=== PATIENT | male | born 1995 | race African-American/Black ===

== ENCOUNTER 2017-09-15 07:08 | Emergency (ER) | payer MEDICAID ==
[~2017-09-15] VITALS: Ht 182.9 cm; Wt 65.5 kg
[~2017-09-15 07:08] MED LIST: COROTSUS OT; CYCL-1 PO; NO HOME MEDS; ONDA4TAB12 PO
[2017-09-15] MEDS ORDERED: ipratropium/albuterol 3ml nebule NEB ONE (07:40)
[2017-09-15] MEDS ORDERED: dexamethasone 4mg tablet PO ONE (07:40)
[2017-09-15] MEDS ORDERED: AZIT250T PO (07:55)
[2017-09-15] MEDS ORDERED: ALBU8HFA PO (07:55)
[2017-09-15] MEDS ORDERED: PRED20TA PO (07:55)
[2017-09-15 08:23] VITALS: BP 126/68
== END 2017-09-15 08:55 | disposition home or self-care (01) ==
LOC: ER 07:08
DX: J20.9 Acute bronchitis, unspecified (principal); J06.9 Acute upper respiratory infection, unspecified; J32.0 Chronic maxillary sinusitis; F17.200 Nicotine dependence, unspecified, uncomplicated; F12.10 Cannabis abuse, uncomplicated
CPT/HCPCS: 87070; 94640; 99284; J8540

== ENCOUNTER 2019-03-17 17:19 | Emergency (ER) | payer MEDICAID ==
[~2019-03-17] VITALS: Ht 177.8 cm; Wt 70.0 kg
[~2019-03-17 17:19] MED LIST changes: +AZIT250T PO
[2019-03-17 17:53] LABS: CLARITY,URINE SLIGHTLY CLOUDY (Clear); COLOR,URINE YELLOW (Yellow); GLUCOSE, URINE NEGATIVE (Neg); KETONES,URINE TRACE mg/dl (Neg); LEUKOCYTE ESTERASE ,URINE NEGATIVE (Neg); NITRITES, URINE NEGATIVE (Neg); OCCULT BLOOD,URINE NEGATIVE (Neg); PH,URINE 6.5 (4.8-8.0); PROTEIN,URINE 30 mg/dl (Neg)
[2019-03-17 18:00] LABS: UA COLLECTION TYPE CLN CATCH MIDSTREAM
[2019-03-17 18:07] LABS: MUCUS STRANDS MANY /LPF (Neg); SQUAMOUS EPITHELIAL CELL,UR NONE SEEN /LPF (FEW)
[2019-03-17 18:08] LABS: BACTERIA,URINE NONE SEEN /HPF (Neg); RBC,URINE NONE SEEN /HPF (0-2); WBC,URINE 0-4 /HPF (0-4)
[2019-03-17 18:10] LABS: AMORPHOUS PHOSPHATES 2+
[2019-03-17] MEDS ORDERED: CefTRIAXone 250MG IM Kit w/LIDOcaine IM ONE (18:30)
[2019-03-17] MEDS ORDERED: azithromycin 250mg tablet PO ONE (18:30)
[2019-03-17 19:00] VITALS: BP 133/72
[2019-03-17] MEDS ORDERED: ACYC-202 PO (19:32)
[2019-03-17 19:58] LABS: HIV ANTIBODY 1&2 RAPID NON-REACTIVE (Neg)
[2019-03-19 11:41] LABS: RPR Reactive (Non Reactive)
[2019-03-22 05:14] LABS: HSV 1 PCR Negative (Negative); HSV 2 PCR Negative (Negative)
== END 2019-03-17 19:49 | disposition home or self-care (01) ==
LOC: ER 17:20
DX: B00.9 Herpesviral infection, unspecified (principal); F12.90 Cannabis use, unspecified, uncomplicated; Z79.2 Long term (current) use of antibiotics; Z79.899 Other long term (current) drug therapy; Z98.890 Other specified postprocedural states
CPT/HCPCS: 36415; 81001; 86592; 86703; 87491; 87529; 87591; 96372; 99283; J0696

== ENCOUNTER 2019-04-20 09:28 | Emergency (ER) | payer MEDICAID ==
[~2019-04-20] VITALS: Ht 177.8 cm; Wt 65.9 kg
[2019-04-20 09:35] VITALS: BP 130/76
[2019-04-20] MEDS ORDERED: penicillin G benzathine 1.2 million unit/2ml syringe IM ONE (11:30)
[2019-04-20] MEDS ORDERED: ACYC400T PO (11:41)
== END 2019-04-20 12:10 | disposition home or self-care (01) ==
LOC: ER 09:29
DX: A60.01 Herpesviral infection of penis (principal); A51.0 Primary genital syphilis; F12.90 Cannabis use, unspecified, uncomplicated; Z90.89 Acquired absence of other organs; Z98.890 Other specified postprocedural states; Z79.899 Other long term (current) drug therapy
CPT/HCPCS: 96372; 99283; J0561

== ENCOUNTER 2019-05-31 19:18 | Emergency (ER) | payer OTHER, MEDICAID ==
[~2019-05-31] VITALS: Ht 177.8 cm; Wt 61.0 kg
[2019-05-31 19:27] VITALS: BP 125/68
[2019-05-31] MEDS ORDERED: ketorolac tromethamine 15mg/ml inj. IM ONE (20:25)
== END 2019-05-31 21:07 | disposition home or self-care (01) ==
LOC: ER 19:19
DX: M54.5 Low back pain (principal); R51 Headache; Z90.89 Acquired absence of other organs; Z98.890 Other specified postprocedural states; F12.90 Cannabis use, unspecified, uncomplicated; Z79.899 Other long term (current) drug therapy; V87.7XXA Person injured in collision between other specified motor vehicles (traffic), initial encounter; Y92.89 Other specified places as the place of occurrence of the external cause; Y92.488 Other paved roadways as the place of occurrence of the external cause; Y99.8 Other external cause status
CPT/HCPCS: 96372; 99283; J1885

== ENCOUNTER 2019-09-14 09:43 | Emergency (ER) | payer MEDICAID, OTHER ==
[~2019-09-14] VITALS: Ht 177.8 cm; Wt 63.9 kg
--- NOTE | 2019-09-14 10:38 | NUR ---
Ultrasound in progress.
[2019-09-14 10:39] LABS: CLARITY,URINE CLEAR (Clear); COLOR,URINE YELLOW (Yellow); GLUCOSE, URINE NEGATIVE (Neg); KETONES,URINE NEGATIVE (Neg); LEUKOCYTE ESTERASE ,URINE NEGATIVE (Neg); NITRITES, URINE NEGATIVE (Neg); OCCULT BLOOD,URINE TRACE-INTACT (Neg); PH,URINE 6.5 (4.8-8.0); PROTEIN,URINE NEGATIVE (Neg); UROBILINOGEN,URINE 0.2 E.U/dL (0.2-1.0)
[2019-09-14 10:44] LABS: UA COLLECTION TYPE CLN CATCH MIDSTREAM
[2019-09-14 10:46] LABS: BACTERIA,URINE NONE SEEN /HPF (Neg); MUCUS STRANDS NONE SEEN /LPF (Neg); RBC,URINE 0-2 /HPF (0-2); SQUAMOUS EPITHELIAL CELL,UR FEW /LPF (FEW); WBC,URINE 0-4 /HPF (0-4)
[2019-09-14 11:16] VITALS: BP 118/75
[2019-09-14] MEDS ORDERED: ondansetron 4mg rapidly disintigrating tab PO ONE (11:25)
[2019-09-14] MEDS ORDERED: HYDROcodone/acetaminophen 5mg/325mg tablet PO ONE (11:25)
[2019-09-14] MEDS ORDERED: tamsulosin 0.4mg capsule PO SCH (11:25)
[2019-09-14] MEDS ORDERED: NAPR-56 PO (11:43)
== END 2019-09-14 12:26 | disposition home or self-care (01) ==
LOC: ER 09:44
DX: N20.0 Calculus of kidney (principal); N23 Unspecified renal colic; F12.90 Cannabis use, unspecified, uncomplicated; Z98.890 Other specified postprocedural states; Z79.2 Long term (current) use of antibiotics; Z79.899 Other long term (current) drug therapy
CPT/HCPCS: 74176; 76775; 81001; 99284

== ENCOUNTER 2019-10-07 18:05 | Emergency (ER) | payer MEDICAID ==
[~2019-10-07] VITALS: Ht 182.9 cm; Wt 65.9 kg
[~2019-10-07 18:05] MED LIST changes: +NAPR-56 PO
[2019-10-07 18:19] VITALS: BP 121/75
== END 2019-10-07 19:18 | disposition home or self-care (01) ==
LOC: ER 18:07
DX: S01.442A Puncture wound with foreign body of left cheek and temporomandibular area, initial encounter (principal); F12.90 Cannabis use, unspecified, uncomplicated; W23.0XXA Caught, crushed, jammed, or pinched between moving objects, initial encounter; Y93.89 Activity, other specified; Y92.89 Other specified places as the place of occurrence of the external cause; Y99.9 Unspecified external cause status
CPT/HCPCS: 99284

== ENCOUNTER 2019-12-02 16:37 | Emergency (ER) | payer MEDICAID ==
[~2019-12-02] VITALS: Ht 182.9 cm; Wt 80.0 kg
[~2019-12-02 16:37] MED LIST changes: -NAPR-56 PO
[2019-12-02] MEDS ORDERED: normal saline 1000ML IV soln IVB ONE (17:25)
[2019-12-02 17:58] LABS: BASOPHILS % (AUTO) 0.6 % (0-1); EOSINOPHILS # (AUTO) 0.1 X10'3 (0-0.9); EOSINOPHILS % (AUTO) 1.3 % (0-6); HEMATOCRIT 46.5 % (42.0-52.0); HEMOGLOBIN 15.3 g/dl (14.0-17.9); LYMPHOCYTES # (AUTO) 1.7 X10'3 (1.1-4.8); LYMPHOCYTES % (AUTO) 33.4 % (21-51); MEAN CORPUSCULAR HEMOGLOBIN 30.2 PG (27.0-31.0); MEAN CORPUSCULAR HGB CONC 32.9 g/dL (33.0-36.5); MEAN CORPUSCULAR VOLUME 91.8 FL (78-98); MEAN PLATELET VOLUME 8.8 FL (7.4-10.4); MONOCYTES # (AUTO) 0.5 X10'3 (0-0.9); MONOCYTES % (AUTO) 11.1 % (2-12); NEUTROPHILS # (AUTO) 2.7 X10'3 (1.8-7.7); NEUTROPHILS % (AUTO) 53.6 % (42-75); PLATELET COUNT 186 X10'3 (140-440); RED BLOOD COUNT 5.06 X10'6 (4.70-6.10); RED CELL DISTRIBUTION WIDTH 13.2 % (11.5-14.5)
[2019-12-02 18:12] LABS: ALANINE AMINOTRANSFERASE 42 U/L (12-78); ALBUMIN 4.3 G/DL (3.4-5.0); ALBUMIN/GLOBULIN RATIO 1.2 (1.1-1.5); ALKALINE PHOSPHATASE 61 IU/L (46-116); ANION GAP 5 (8-16); ASPARTATE AMINO TRANSFERASE 26 U/L (10-37); BILIRUBIN,TOTAL 0.4 MG/DL (0.1-1.0); BLOOD UREA NITROGEN 19 MG/DL (7-18); BUN/CREATININE RATIO 17.9 (5.4-32.0); CALCIUM 9.4 MG/DL (8.5-10.1); CHLORIDE 104 MMOL/L (99-107); CREATININE 1.06 MG/DL (0.60-1.10); GLUCOSE 75 MG/DL (70-104); POTASSIUM 4.2 MMOL/L (3.5-5.1); SODIUM 140 MMOL/L (135-145); TOTAL CARBON DIOXIDE 30.7 MMOL/L (24-32); TOTAL PROTEIN 7.8 G/DL (6.4-8.2); eGFR > 90 ML/MIN
[2019-12-02 18:45] LABS: CLARITY,URINE SLIGHTLY CLOUDY (Clear); COLOR,URINE YELLOW (Yellow); GLUCOSE, URINE NEGATIVE (Neg); KETONES,URINE NEGATIVE (Neg); LEUKOCYTE ESTERASE ,URINE NEGATIVE (Neg); NITRITES, URINE NEGATIVE (Neg); OCCULT BLOOD,URINE NEGATIVE (Neg); PROTEIN,URINE NEGATIVE (Neg)
[2019-12-02 18:52] VITALS: BP 125/60
[2019-12-02 18:54] LABS: UA COLLECTION TYPE URINAL
[2019-12-02 18:55] LABS: AMORPHOUS PHOSPHATES 2+; BACTERIA,URINE FEW /HPF (Neg); RBC,URINE NONE SEEN /HPF (0-2); SQUAMOUS EPITHELIAL CELL,UR FEW /LPF (FEW); WBC,URINE 0-4 /HPF (0-4)
--- NOTE | 2019-12-02 19:10 | NUR ---
pt mothers called and insisted on a ct before discharged, all labs are unremarkable and pt needs to follow up with [facility]. Provider made aware of request. pt is in no distress and pain is 0/10
== END 2019-12-02 19:24 | disposition home or self-care (01) ==
LOC: ER 17:45
DX: E86.0 Dehydration (principal); F12.90 Cannabis use, unspecified, uncomplicated; R53.1 Weakness; Z79.2 Long term (current) use of antibiotics; Z79.899 Other long term (current) drug therapy
CPT/HCPCS: 36415; 80053; 81001; 85025; 93005; 99284; J7030

== ENCOUNTER 2020-01-15 10:50 | Emergency (ER) | payer MEDICAID ==
[~2020-01-15] VITALS: Ht 182.9 cm; Wt 63.3 kg
[2020-01-15] MEDS ORDERED: ketorolac tromethamine 15mg/ml inj. IM ONE (11:15)
[2020-01-15] MEDS ORDERED: orphenadrine citrate 60mg/2ml inj. IM ONE (11:15)
[2020-01-15 11:52] VITALS: BP 119/81
== END 2020-01-15 11:53 | disposition home or self-care (01) ==
LOC: ER 10:51
DX: S60.211A Contusion of right wrist, initial encounter (principal); M54.5 Low back pain; F12.90 Cannabis use, unspecified, uncomplicated; Z90.89 Acquired absence of other organs; Z79.899 Other long term (current) drug therapy; Z98.890 Other specified postprocedural states; V89.2XXA Person injured in unspecified motor-vehicle accident, traffic, initial encounter; Y93.89 Activity, other specified; Y92.488 Other paved roadways as the place of occurrence of the external cause; Y99.8 Other external cause status
CPT/HCPCS: 29280; 73110; 96372; 99283; J1885

== ENCOUNTER 2020-02-20 17:10 | Emergency (ER) | payer MEDICAID ==
[~2020-02-20] VITALS: Ht 182.9 cm; Wt 61.0 kg
[2020-02-20 18:58] VITALS: BP 136/74
[2020-02-20] MEDS ORDERED: HYDROcodone/acetaminophen 10/325mg tab PO ONE (19:10)
== END 2020-02-20 21:10 | disposition home or self-care (01) ==
LOC: ER 17:11
DX: R51 Headache (principal); H53.8 Other visual disturbances; R11.0 Nausea; F17.200 Nicotine dependence, unspecified, uncomplicated; Z87.442 Personal history of urinary calculi; Z90.89 Acquired absence of other organs; Z98.890 Other specified postprocedural states; Z72.89 Other problems related to lifestyle; Z79.899 Other long term (current) drug therapy
CPT/HCPCS: 70450; 99284

== ENCOUNTER 2020-04-02 14:30 | Emergency (ER) | payer MEDICAID ==
[~2020-04-02] VITALS: Ht 182.9 cm; Wt 63.7 kg
[2020-04-02 16:48] LABS: CLARITY,URINE CLOUDY (Clear); COLOR,URINE STRAW (Yellow); GLUCOSE, URINE NEGATIVE (Neg); KETONES,URINE NEGATIVE (Neg); LEUKOCYTE ESTERASE ,URINE NEGATIVE (Neg); NITRITES, URINE NEGATIVE (Neg); OCCULT BLOOD,URINE NEGATIVE (Neg); PROTEIN,URINE NEGATIVE (Neg)
[2020-04-02 16:49] LABS: UA COLLECTION TYPE CLN CATCH MIDSTREAM
[2020-04-02 17:04] LABS: SQUAMOUS EPITHELIAL CELL,UR NONE SEEN /LPF (FEW)
[2020-04-02 17:05] LABS: MUCUS STRANDS MANY /LPF (Neg)
[2020-04-02 17:06] LABS: AMORPHOUS PHOSPHATES 4+; BACTERIA,URINE NONE SEEN /HPF (Neg); RBC,URINE 0-2 /HPF (0-2); WBC,URINE 0-4 /HPF (0-4)
[2020-04-02 17:41] VITALS: BP 115/81
[2020-04-02] MEDS ORDERED: tamsulosin 0.4mg capsule PO SCH (17:50)
[2020-04-02] MEDS ORDERED: HYDROcodone/acetaminophen 5mg/325mg tablet PO ONE (17:50)
[2020-04-02] MEDS ORDERED: naproxen 500mg tablet PO ONE (17:50)
[2020-04-02] MEDS ORDERED: HYDR-4383 PO (17:52)
[2020-04-02] MEDS ORDERED: NAPR-56 PO (17:52)
[2020-04-02] MEDS ORDERED: FLO0.4C PO (17:52)
== END 2020-04-02 18:55 | disposition home or self-care (01) ==
LOC: ER 14:36
DX: N23 Unspecified renal colic (principal); Z90.89 Acquired absence of other organs; Z72.89 Other problems related to lifestyle; Z98.890 Other specified postprocedural states; Z79.899 Other long term (current) drug therapy
CPT/HCPCS: 81001; 99284

== ENCOUNTER 2020-08-19 09:43 | Emergency (ER) | payer MEDICAID ==
[~2020-08-19] VITALS: Ht 182.9 cm; Wt 62.8 kg
[~2020-08-19 09:43] MED LIST changes: +HYDR-4383 PO
[2020-08-19 11:05] LABS: BASOPHILS % (AUTO) 0.9 % (0-1); EOSINOPHILS # (AUTO) 0.1 X10'3 (0-0.9); EOSINOPHILS % (AUTO) 1.6 % (0-6); HEMATOCRIT 48.3 % (42.0-52.0); HEMOGLOBIN 15.9 g/dl (14.0-17.9); LYMPHOCYTES # (AUTO) 1.6 X10'3 (1.1-4.8); LYMPHOCYTES % (AUTO) 31.2 % (21-51); MEAN CORPUSCULAR HGB CONC 32.9 g/dL (33.0-36.5); MEAN CORPUSCULAR VOLUME 91.3 FL (78-98); MONOCYTES # (AUTO) 0.6 X10'3 (0-0.9); MONOCYTES % (AUTO) 11.1 % (2-12); NEUTROPHILS # (AUTO) 2.8 X10'3 (1.8-7.7); NEUTROPHILS % (AUTO) 55.2 % (42-75); PLATELET COUNT 195 X10'3 (140-440); RED BLOOD COUNT 5.29 X10'6 (4.70-6.10); RED CELL DISTRIBUTION WIDTH 13.9 % (11.5-14.5); WHITE BLOOD COUNT 5.1 X10'3 (4.5-11.0)
[2020-08-19 11:19] LABS: ALANINE AMINOTRANSFERASE 31 U/L (12-78); ALBUMIN 4.6 G/DL (3.4-5.0); ALBUMIN/GLOBULIN RATIO 1.2 (1.1-1.5); ALKALINE PHOSPHATASE 80 IU/L (46-116); ANION GAP 5 (8-16); ASPARTATE AMINO TRANSFERASE 29 U/L (10-37); BILIRUBIN,TOTAL 0.8 MG/DL (0.1-1.0); BLOOD UREA NITROGEN 21 MG/DL (7-18); BUN/CREATININE RATIO 20.6 (5.4-32.0); CALCIUM 9.7 MG/DL (8.5-10.1); CHLORIDE 102 MMOL/L (99-107); CREATININE 1.02 MG/DL (0.60-1.10); GLUCOSE 81 MG/DL (70-104); LIPASE 70 U/L (73-393); POTASSIUM 4.4 MMOL/L (3.5-5.1); SODIUM 139 MMOL/L (135-145); TOTAL CARBON DIOXIDE 32.2 MMOL/L (24-32); TOTAL PROTEIN 8.4 G/DL (6.4-8.2); eGFR > 90 ML/MIN
[2020-08-19 11:47] LABS: CLARITY,URINE CLEAR (Clear); COLOR,URINE YELLOW (Yellow); GLUCOSE, URINE NEGATIVE (Neg); KETONES,URINE NEGATIVE (Neg); LEUKOCYTE ESTERASE ,URINE NEGATIVE (Neg); NITRITES, URINE NEGATIVE (Neg); OCCULT BLOOD,URINE TRACE-INTACT (Neg); PH,URINE 6.5 (4.8-8.0); PROTEIN,URINE NEGATIVE (Neg); UA COLLECTION TYPE CLN CATCH MIDSTREAM
[2020-08-19 11:54] LABS: BACTERIA,URINE NONE SEEN /HPF (Neg); MUCUS STRANDS FEW /LPF (Neg); RBC,URINE 0-2 /HPF (0-2); SQUAMOUS EPITHELIAL CELL,UR NONE SEEN /LPF (FEW); WBC,URINE 0-4 /HPF (0-4)
[2020-08-19] MEDS ORDERED: normal saline 1000ML IV soln IVB ONE (12:40)
[2020-08-19 12:54] LABS: C-REACTIVE PROTEIN < 0.05 MG/DL (0.0-0.5)
[2020-08-19 12:57] VITALS: BP 108/77
[2020-08-19] MEDS ORDERED: ONDA4TAB6 PO (13:08)
== END 2020-08-19 13:22 | disposition home or self-care (01) ==
LOC: ER 09:45
DX: R10.9 Unspecified abdominal pain (principal); R10.31 Right lower quadrant pain; Z87.442 Personal history of urinary calculi; Z90.89 Acquired absence of other organs; Z72.89 Other problems related to lifestyle; Z79.2 Long term (current) use of antibiotics; Z79.899 Other long term (current) drug therapy; Z98.890 Other specified postprocedural states
CPT/HCPCS: 36415; 76775; 80053; 81001; 83690; 85025; 86140; 96360; 99284; J7030

== ENCOUNTER 2020-11-05 11:12 | Emergency (ER) | payer OTHER, MEDICAID ==
[~2020-11-05] VITALS: Ht 182.9 cm; Wt 62.3 kg
[~2020-11-05 11:12] MED LIST changes: +ONDA4TAB6 PO
--- NOTE | 2020-11-05 13:29 | NUR ---
c-collar on and pt layed flat in bed
[2020-11-05] MEDS ORDERED: orphenadrine citrate 60mg/2ml inj. IM ONE (13:35)
[2020-11-05] MEDS ORDERED: ketorolac tromethamine 15mg/ml inj. IM ONE (13:35)
[2020-11-05] MEDS ORDERED: CYCL-1 PO (14:58)
[2020-11-05] MEDS ORDERED: IBUP-1984 PO (14:58)
[2020-11-05 15:02] VITALS: BP 136/77
== END 2020-11-05 15:05 | disposition home or self-care (01) ==
LOC: ER 11:14
DX: M54.2 Cervicalgia (principal); M54.5 Low back pain; Z87.442 Personal history of urinary calculi; Z90.89 Acquired absence of other organs; Z98.890 Other specified postprocedural states; Z72.89 Other problems related to lifestyle; Z79.899 Other long term (current) drug therapy; V87.7XXA Person injured in collision between other specified motor vehicles (traffic), initial encounter; Y93.89 Activity, other specified; Y92.488 Other paved roadways as the place of occurrence of the external cause; Y99.8 Other external cause status
CPT/HCPCS: 72125; 72128; 72131; 96372; 99285; J1885; J2360

== ENCOUNTER 2021-05-25 22:02 | Emergency (ER) | payer MEDICAID ==
[~2021-05-25] VITALS: Ht 182.9 cm; Wt 65.0 kg
[2021-05-26 00:46] VITALS: BP 115/75
== END 2021-05-26 00:48 | disposition home or self-care (01) ==
LOC: ER 22:02
DX: I80.8 Phlebitis and thrombophlebitis of other sites (principal); M25.532 Pain in left wrist; F17.200 Nicotine dependence, unspecified, uncomplicated; Z87.442 Personal history of urinary calculi; Z90.89 Acquired absence of other organs; Z98.890 Other specified postprocedural states; Z72.89 Other problems related to lifestyle; Z79.2 Long term (current) use of antibiotics; Z79.899 Other long term (current) drug therapy
CPT/HCPCS: 93971; 99284

== ENCOUNTER 2021-06-08 02:56 | Emergency (ER) | payer MEDICAID ==
[~2021-06-08] VITALS: Ht 182.9 cm; Wt 65.9 kg
[2021-06-08 03:48] LABS: BASOPHILS % (AUTO) 0.5 % (0-1); EOSINOPHILS % (AUTO) 0.5 % (0-6); HEMOGLOBIN 14.4 g/dl (14.0-17.9); LYMPHOCYTES # (AUTO) 2.2 X10'3 (1.1-4.8); MEAN CORPUSCULAR HEMOGLOBIN 30.4 PG (27.0-31.0); MEAN CORPUSCULAR HGB CONC 33.4 g/dL (33.0-36.5); MEAN CORPUSCULAR VOLUME 90.8 FL (78-98); MEAN PLATELET VOLUME 8.6 FL (7.4-10.4); MONOCYTES # (AUTO) 0.5 X10'3 (0-0.9); MONOCYTES % (AUTO) 5.8 % (2-12); NEUTROPHILS # (AUTO) 6.4 X10'3 (1.8-7.7); NEUTROPHILS % (AUTO) 69.2 % (42-75); PLATELET COUNT 207 X10'3 (140-440); RED BLOOD COUNT 4.74 X10'6 (4.70-6.10); RED CELL DISTRIBUTION WIDTH 13.2 % (11.5-14.5); WHITE BLOOD COUNT 9.2 X10'3 (4.5-11.0)
[2021-06-08 04:20] LABS: ALANINE AMINOTRANSFERASE 30 U/L (12-78); ALBUMIN 4.4 G/DL (3.4-5.0); ALBUMIN/GLOBULIN RATIO 1.2 (1.1-1.5); ALKALINE PHOSPHATASE 60 IU/L (46-116); ANION GAP 13 (8-16); ASPARTATE AMINO TRANSFERASE 37 U/L (10-37); BILIRUBIN,TOTAL 0.5 MG/DL (0.1-1.0); BLOOD UREA NITROGEN 22 MG/DL (7-18); BUN/CREATININE RATIO 20.8 (5.4-32.0); CALCIUM 9.1 MG/DL (8.5-10.1); CHLORIDE 105 MMOL/L (99-107); CREATININE 1.06 MG/DL (0.60-1.10); GLUCOSE 66 MG/DL (70-104); POTASSIUM 3.6 MMOL/L (3.5-5.1); SODIUM 145 MMOL/L (135-145); TOTAL CARBON DIOXIDE 26.7 MMOL/L (24-32); eGFR 85 ML/MIN
[2021-06-08 05:05] VITALS: BP 119/71
== END 2021-06-08 05:08 | disposition home or self-care (01) ==
LOC: ER 02:57
DX: R07.89 Other chest pain (principal); R06.02 Shortness of breath; E16.2 Hypoglycemia, unspecified; Z87.442 Personal history of urinary calculi; Z90.89 Acquired absence of other organs; Z98.890 Other specified postprocedural states; Z72.89 Other problems related to lifestyle; Z79.2 Long term (current) use of antibiotics; Z79.899 Other long term (current) drug therapy
CPT/HCPCS: 36415; 71045; 80053; 83880; 84484; 85025; 93005; 99285

== ENCOUNTER 2021-07-11 22:00 | Emergency (ER) | payer MEDICAID ==
[~2021-07-11] VITALS: Ht 182.9 cm; Wt 63.6 kg
[2021-07-11 22:09] VITALS: BP 107/66
== END 2021-07-12 03:07 | disposition left against medical advice (07) ==
LOC: ER 22:00
DX: M54.2 Cervicalgia (principal); Z53.21 Procedure and treatment not carried out due to patient leaving prior to being seen by health care provider

== ENCOUNTER 2022-03-13 22:22 | Emergency (ER) | payer MEDICAID ==
[~2022-03-13] VITALS: Ht 182.9 cm; Wt 66.2 kg
[2022-03-13 22:30] VITALS: BP 118/80
[2022-03-13 23:51] LABS: CLARITY,URINE CLEAR (Clear); COLOR,URINE YELLOW (Yellow); GLUCOSE, URINE NEGATIVE (Neg); KETONES,URINE NEGATIVE (Neg); LEUKOCYTE ESTERASE ,URINE NEGATIVE (Neg); NITRITES, URINE NEGATIVE (Neg); OCCULT BLOOD,URINE MODERATE (Neg); PROTEIN,URINE NEGATIVE (Neg)
[2022-03-13 23:58] LABS: UA COLLECTION TYPE CLN CATCH MIDSTREAM
[2022-03-14] LABS: BACTERIA,URINE FEW /HPF (Neg); MUCUS STRANDS MANY /LPF (Neg); RBC,URINE 20-50 /HPF (0-2); SQUAMOUS EPITHELIAL CELL,UR FEW /LPF (FEW); WBC,URINE 0-4 /HPF (0-4)
== END 2022-03-14 02:38 | disposition left against medical advice (07) ==
LOC: ER 22:23
DX: R10.9 Unspecified abdominal pain (principal); Z53.21 Procedure and treatment not carried out due to patient leaving prior to being seen by health care provider
CPT/HCPCS: 81001

== ENCOUNTER 2022-09-10 13:28 | Emergency (ER) | payer MEDICAID ==
[~2022-09-10] VITALS: Ht 182.9 cm; Wt 60.0 kg
[2022-09-10 13:51] VITALS: BP 94/47
--- NOTE | 2022-09-10 15:32 | NUR ---
first contact. pt is ao4 resp even unlabored. bilat hands show no swelling or redness rull range of motion. pt states some part are tender particularly left metacarpal
--- NOTE | 2022-09-10 17:02 | NUR ---
pt left prior to md aleman.
== END 2022-09-10 16:40 | disposition left against medical advice (07) ==
LOC: ER 13:28
DX: S60.222A Contusion of left hand, initial encounter (principal); S60.221A Contusion of right hand, initial encounter; Z87.442 Personal history of urinary calculi; Z72.89 Other problems related to lifestyle; Z90.89 Acquired absence of other organs; Z98.890 Other specified postprocedural states; Z79.2 Long term (current) use of antibiotics; Z79.899 Other long term (current) drug therapy; X58.XXXA Exposure to other specified factors, initial encounter; Y93.89 Activity, other specified; Y92.89 Other specified places as the place of occurrence of the external cause; Y99.8 Other external cause status
CPT/HCPCS: 73130; 99283

== ENCOUNTER 2023-08-15 19:57 | Emergency (ER) | payer MEDICAID ==
[~2023-08-15] VITALS: Ht 182.9 cm; Wt 74.5 kg
[2023-08-15 20:08] VITALS: TEMP 98.3
[2023-08-15 20:18] LABS: BASOPHILS % (AUTO) 0.3 % (0-1); EOSINOPHILS % (AUTO) 0.2 % (0-6); HEMATOCRIT 42.7 % (42.0-52.0); LYMPHOCYTES # (AUTO) 1.4 X10'3 (1.1-4.8); LYMPHOCYTES % (AUTO) 9.4 % (21-51); MEAN CORPUSCULAR HEMOGLOBIN 29.9 PG (27.0-31.0); MEAN CORPUSCULAR HGB CONC 32.7 g/dL (33.0-36.5); MEAN CORPUSCULAR VOLUME 91.3 FL (78-98); MEAN PLATELET VOLUME 7.8 FL (7.4-10.4); MONOCYTES # (AUTO) 0.6 X10'3 (0-0.9); MONOCYTES % (AUTO) 4.3 % (2-12); NEUTROPHILS # (AUTO) 12.5 X10'3 (1.8-7.7); NEUTROPHILS % (AUTO) 85.8 % (42-75); PLATELET COUNT 243 X10'3 (140-440); RED BLOOD COUNT 4.67 X10'6 (4.70-6.10); RED CELL DISTRIBUTION WIDTH 14.3 % (11.5-14.5); WHITE BLOOD COUNT 14.6 X10'3 (4.5-11.0)
[2023-08-15] MEDS ORDERED: ondansetron/PF 4mg/2ml inj IV ONE (20:20)
[2023-08-15] MEDS ORDERED: normal saline 1000ML IV soln IVB ONE (20:25)
[2023-08-15] MEDS ORDERED: iohexol 300mg/ml 100ml inj. ONE (20:28)
[2023-08-15 20:31] LABS: ALANINE AMINOTRANSFERASE 31 U/L (12-78); ALBUMIN 4.3 G/DL (3.4-5.0); ALBUMIN/GLOBULIN RATIO 1.1 (1.1-1.5); ALKALINE PHOSPHATASE 83 IU/L (46-116); ANION GAP 15 (8-16); ASPARTATE AMINO TRANSFERASE 35 U/L (10-37); BILIRUBIN,TOTAL 0.6 MG/DL (0.1-1.0); BLOOD UREA NITROGEN 14 MG/DL (7-18); BUN/CREATININE RATIO 12.5 (10.0-20.0); CHLORIDE 96 MMOL/L (99-107); CREATININE 1.12 MG/DL (0.60-1.10); GLUCOSE 218 MG/DL (70-104); LIPASE 21 U/L (16-77); POTASSIUM 3.6 MMOL/L (3.5-5.1); SODIUM 138 MMOL/L (135-145); TOTAL CARBON DIOXIDE 27.1 MMOL/L (24-32); TOTAL PROTEIN 8.3 G/DL (6.4-8.2); eCRCL 104 ML/MIN; eGFR > 90 ML/MIN
[2023-08-15 20:55] LABS: BILIRUBIN,URINE NEGATIVE (Neg); CLARITY,URINE CLEAR (Clear); COLOR,URINE YELLOW (Yellow); GLUCOSE, URINE 500 mg/dl (Neg); KETONES,URINE 40 mg/dl (Neg); LEUKOCYTE ESTERASE ,URINE NEGATIVE (Neg); NITRITES, URINE NEGATIVE (Neg); OCCULT BLOOD,URINE SMALL (Neg); PROTEIN,URINE TRACE mg/dl (Neg)
[2023-08-15 21:00] LABS: UA COLLECTION TYPE URINAL
[2023-08-15 21:04] LABS: BACTERIA,URINE NONE SEEN /HPF (Neg); MUCUS STRANDS MANY /LPF (Neg); RBC,URINE 0-2 /HPF (0-2); SQUAMOUS EPITHELIAL CELL,UR FEW /LPF (FEW); WBC,URINE 0-4 /HPF (0-4)
[2023-08-15 21:53] VITALS: O2SAT 97
[2023-08-15 22:22] LABS: URINE AMPHETAMINE SCREEN NEGATIVE (Neg); URINE BARBITUATE SCREEN NEGATIVE (Neg); URINE BENZODIAZEPINES SCREEN NEGATIVE (Neg); URINE CANNABINOID SCREEN POSITIVE (Neg); URINE COCAINE SCREEN POSITIVE (Neg); URINE METHADONE SCREEN NEGATIVE (Neg); URINE OPIATE SCREEN NEGATIVE (Neg); URINE PHENCYCLIDINE SCREEN NEGATIVE (Neg)
[2023-08-15 22:42] LABS: ETHANOL 125 MG/DL (<10)
[2023-08-16 00:20] VITALS: BP 119/69; PULSE 75; RESP 14
[2023-08-16] MEDS ORDERED: LORazepam 1 MG tablet PO ONE (00:55)
[2023-08-16] MEDS ORDERED: aspirin 81mg tab.chew PO ONE (00:55)
== END 2023-08-16 01:25 | disposition home or self-care (01) ==
LOC: ER 19:58
DX: F19.10 Other psychoactive substance abuse, uncomplicated (principal); R07.9 Chest pain, unspecified; Z87.442 Personal history of urinary calculi; Z79.899 Other long term (current) drug therapy
CPT/HCPCS: 36415; 71045; 74177; 80053; 80305; 80320; 81001; 82948; 83690; 84484; 85025; 93005; 96361; 96374; 99285; J2405; J3490; J7030; Q9967

== ENCOUNTER 2023-09-07 20:13 | Emergency (ER) | payer MEDICAID ==
[~2023-09-07] VITALS: Ht 182.9 cm; Wt 68.2 kg
[2023-09-07 21:36] LABS: BASOPHILS # (AUTO) 0.1 X10'3 (0-0.2); BASOPHILS % (AUTO) 0.5 % (0-1); EOSINOPHILS % (AUTO) 0 % (0-6); HEMATOCRIT 48.3 % (42.0-52.0); HEMOGLOBIN 15.9 g/dl (14.0-17.9); LYMPHOCYTES % (AUTO) 4.8 % (21-51); MEAN CORPUSCULAR HEMOGLOBIN 29.9 PG (27.0-31.0); MEAN CORPUSCULAR HGB CONC 32.8 g/dL (33.0-36.5); MEAN CORPUSCULAR VOLUME 91.2 FL (78-98); MEAN PLATELET VOLUME 8.4 FL (7.4-10.4); MONOCYTES # (AUTO) 1.2 X10'3 (0-0.9); MONOCYTES % (AUTO) 5.7 % (2-12); NEUTROPHILS # (AUTO) 18.7 X10'3 (1.8-7.7); PLATELET COUNT 279 X10'3 (140-440); RED CELL DISTRIBUTION WIDTH 14.2 % (11.5-14.5)
[2023-09-07 21:52] LABS: ALANINE AMINOTRANSFERASE 34 U/L (12-78); ALBUMIN 5.1 G/DL (3.4-5.0); ALBUMIN/GLOBULIN RATIO 1.1 (1.1-1.5); ALKALINE PHOSPHATASE 71 IU/L (46-116); ANION GAP 16 (8-16); ASPARTATE AMINO TRANSFERASE 40 U/L (10-37); BILIRUBIN,TOTAL 0.5 MG/DL (0.1-1.0); BLOOD UREA NITROGEN 15 MG/DL (7-18); BUN/CREATININE RATIO 10.7 (10.0-20.0); CALCIUM 9.9 MG/DL (8.5-10.1); CHLORIDE 103 MMOL/L (99-107); ETHANOL 83 MG/DL (<10); GLUCOSE 108 MG/DL (70-104); LIPASE 16 U/L (16-77); POTASSIUM 3.7 MMOL/L (3.5-5.1); SODIUM 144 MMOL/L (135-145); TOTAL CARBON DIOXIDE 25.5 MMOL/L (24-32); TOTAL PROTEIN 9.7 G/DL (6.4-8.2); eCRCL 76 ML/MIN; eGFR 74 ML/MIN
[2023-09-07 22:36] VITALS: TEMP 97.9
[2023-09-08] MEDS ORDERED: ketorolac trometh. 30mg/ml inj. IV ONE (00:15)
[2023-09-08] MEDS ORDERED: ondansetron/PF 4mg/2ml inj IV ONE (00:15)
[2023-09-08] MEDS ORDERED: normal saline 1000ml 1,000 ML IV ONE (00:15)
[2023-09-08 01:24] LABS: BILIRUBIN,URINE SMALL (Neg); CLARITY,URINE SLIGHTLY CLOUDY (Clear); GLUCOSE, URINE NEGATIVE (Neg); KETONES,URINE TRACE mg/dl (Neg); LEUKOCYTE ESTERASE ,URINE NEGATIVE (Neg); NITRITES, URINE NEGATIVE (Neg); OCCULT BLOOD,URINE MODERATE (Neg); PROTEIN,URINE 100 mg/dl (Neg); UROBILINOGEN,URINE 0.2 E.U/dL (0.2-1.0)
[2023-09-08 01:27] LABS: COLOR,URINE DARK YELLOW (Yellow); UA COLLECTION TYPE NON-SPECIFIED
[2023-09-08 01:38] LABS: HYALINE CASTS >30 /LPF (NEGATIVE)
[2023-09-08 01:40] LABS: BACTERIA,URINE 2+ /HPF (Neg); SQUAMOUS EPITHELIAL CELL,UR FEW /LPF (FEW); TRANSITIONAL EPI CELLS,URINE FEW /HPF; WBC,URINE 0-4 /HPF (0-4)
[2023-09-08 01:42] LABS: URINE AMPHETAMINE SCREEN NEGATIVE (Neg); URINE BARBITUATE SCREEN NEGATIVE (Neg); URINE BENZODIAZEPINES SCREEN NEGATIVE (Neg); URINE CANNABINOID SCREEN POSITIVE (Neg); URINE COCAINE SCREEN POSITIVE (Neg); URINE METHADONE SCREEN NEGATIVE (Neg); URINE OPIATE SCREEN NEGATIVE (Neg); URINE PHENCYCLIDINE SCREEN NEGATIVE (Neg)
[2023-09-08] MEDS ORDERED: ONDA8TAB13 PO (01:52)
[2023-09-08] MEDS ORDERED: proCHLORperazine 10 MG/2 ml inj IV ONE (02:15)
[2023-09-08 02:56] VITALS: BP 154/84; PULSE 76; RESP 13; O2SAT 98
== END 2023-09-08 02:58 | disposition home or self-care (01) ==
LOC: ER 20:14
DX: R11.2 Nausea with vomiting, unspecified (principal); R10.9 Unspecified abdominal pain; Z87.442 Personal history of urinary calculi; Z79.899 Other long term (current) drug therapy; Z79.1 Long term (current) use of non-steroidal anti-inflammatories (NSAID); Z79.2 Long term (current) use of antibiotics
CPT/HCPCS: 36415; 80053; 80305; 80320; 81001; 82948; 83690; 84145; 85025; 96361; 96374; 96375; 99285; J0780; J1885; J2405; J7030

== ENCOUNTER 2023-12-17 13:32 | Emergency (ER) | payer MEDICAID ==
[~2023-12-17] VITALS: Ht 182.9 cm; Wt 67.9 kg
[~2023-12-17 13:32] MED LIST changes: +ONDA8TAB13 PO
[2023-12-17 14:52] LABS: BILIRUBIN,URINE NEGATIVE (Neg); CLARITY,URINE SLIGHTLY CLOUDY (Clear); COLOR,URINE YELLOW (Yellow); GLUCOSE, URINE NEGATIVE (Neg); KETONES,URINE NEGATIVE (Neg); LEUKOCYTE ESTERASE ,URINE NEGATIVE (Neg); NITRITES, URINE NEGATIVE (Neg); OCCULT BLOOD,URINE TRACE-INTACT (Neg); PROTEIN,URINE NEGATIVE (Neg)
[2023-12-17 14:59] LABS: UA COLLECTION TYPE CLN CATCH MIDSTREAM
[2023-12-17 15:11] LABS: MUCUS STRANDS MANY /LPF (Neg); SQUAMOUS EPITHELIAL CELL,UR FEW /LPF (FEW)
[2023-12-17 15:12] LABS: BACTERIA,URINE FEW /HPF (Neg); WBC,URINE 0-4 /HPF (0-4)
[2023-12-17 15:16] LABS: BASOPHILS # (AUTO) 0.1 X10'3 (0-0.2); BASOPHILS % (AUTO) 0.9 % (0-1); EOSINOPHILS % (AUTO) 0.7 % (0-6); HEMATOCRIT 43.3 % (42.0-52.0); HEMOGLOBIN 14.3 g/dl (14.0-17.9); LYMPHOCYTES # (AUTO) 1.8 X10'3 (1.1-4.8); LYMPHOCYTES % (AUTO) 28.6 % (21-51); MEAN CORPUSCULAR HEMOGLOBIN 30.2 PG (27.0-31.0); MEAN CORPUSCULAR VOLUME 91.6 FL (78-98); MEAN PLATELET VOLUME 8.6 FL (7.4-10.4); MONOCYTES # (AUTO) 0.7 X10'3 (0-0.9); MONOCYTES % (AUTO) 10.6 % (2-12); NEUTROPHILS # (AUTO) 3.8 X10'3 (1.8-7.7); NEUTROPHILS % (AUTO) 59.2 % (42-75); PLATELET COUNT 226 X10'3 (140-440); RED BLOOD COUNT 4.73 X10'6 (4.70-6.10); RED CELL DISTRIBUTION WIDTH 13.6 % (11.5-14.5); WHITE BLOOD COUNT 6.5 X10'3 (4.5-11.0)
[2023-12-17 15:29] LABS: ALBUMIN 4.3 G/DL (3.4-5.0); ANION GAP 8 (8-16); BLOOD UREA NITROGEN 16 MG/DL (7-18); CALCIUM 9.3 MG/DL (8.5-10.1); CHLORIDE 104 MMOL/L (99-107); GLUCOSE 80 MG/DL (70-104); LIPASE 40 U/L (16-77); POTASSIUM 4.4 MMOL/L (3.5-5.1); SODIUM 142 MMOL/L (135-145); TOTAL CARBON DIOXIDE 29.7 MMOL/L (24-32); eCRCL 107 ML/MIN; eGFR > 90 ML/MIN
[2023-12-17] MEDS ORDERED: iohexol 300mg/ml 100ml inj. ONE (16:16)
[2023-12-17] MEDS: ketorolac trometh. 30mg/ml inj. IV ONE (16:18)
[2023-12-17] MEDS ORDERED: POLY17PO10 PO (17:13)
[2023-12-17 17:29] VITALS: BP 118/77; PULSE 83; TEMP 98.2; O2SAT 98
[2023-12-17 17:32] VITALS: RESP 16
[2023-12-19] MEDS ORDERED: PANT40TA54 PO (11:32)
[2023-12-19] MEDS ORDERED: DOCU100C40 PO (11:32)
== END 2023-12-17 17:33 | disposition home or self-care (01) ==
LOC: ER 13:32
DX: N20.0 Calculus of kidney (principal); K59.00 Constipation, unspecified; Z79.2 Long term (current) use of antibiotics; Z79.899 Other long term (current) drug therapy
CPT/HCPCS: 36415; 74177; 80048; 81001; 83690; 85025; 96374; 99285; J1885; J3490; L4360; Q9967

== ENCOUNTER 2024-02-05 17:31 | Emergency (ER) | payer MEDICAID ==
[~2024-02-05] VITALS: Ht 182.9 cm; Wt 72.7 kg
[~2024-02-05 17:31] MED LIST changes: -AZIT250T PO; +DOCU100C40 PO; -NO HOME MEDS; -ONDA4TAB6 PO; -ONDA8TAB13 PO; +PANT40TA54 PO
[2024-02-05] MEDS ORDERED: NO HOME MEDS (18:34)
[2024-02-05] MEDS ORDERED: CLOT30CR19 TOP (18:44)
[2024-02-05 18:58] VITALS: BP 122/78; PULSE 88; RESP 18; TEMP 98.1; O2SAT 98
== END 2024-02-05 19:01 | disposition home or self-care (01) ==
LOC: ER 17:32
DX: N48.1 Balanitis (principal); F10.90 Alcohol use, unspecified, uncomplicated; F14.90 Cocaine use, unspecified, uncomplicated; Z79.899 Other long term (current) drug therapy; Z87.442 Personal history of urinary calculi; Z98.890 Other specified postprocedural states
CPT/HCPCS: 99282

== ENCOUNTER 2024-03-10 19:25 | Emergency (ER) | payer MEDICAID ==
[~2024-03-10] VITALS: Ht 182.9 cm; Wt 70.4 kg
[~2024-03-10 19:25] MED LIST changes: +CLOT30CR19 TOP; -COROTSUS OT; -CYCL-1 PO; -DOCU100C40 PO; -HYDR-4383 PO; +NO HOME MEDS; -ONDA4TAB12 PO; -PANT40TA54 PO
[2024-03-10 19:26] VITALS: BP 127/80; PULSE 71; RESP 16; O2SAT 98
[2024-03-10 19:51] LABS: BASOPHILS # (AUTO) 0.1 X10'3 (0-0.2); BASOPHILS % (AUTO) 0.8 % (0-1); EOSINOPHILS % (AUTO) 0.5 % (0-6); HEMATOCRIT 40.5 % (42.0-52.0); HEMOGLOBIN 13.3 g/dl (14.0-17.9); LYMPHOCYTES # (AUTO) 1.8 X10'3 (1.1-4.8); LYMPHOCYTES % (AUTO) 27.4 % (21-51); MEAN CORPUSCULAR HEMOGLOBIN 29.8 PG (27.0-31.0); MEAN CORPUSCULAR HGB CONC 32.8 g/dL (33.0-36.5); MEAN CORPUSCULAR VOLUME 90.8 FL (78-98); MEAN PLATELET VOLUME 8.1 FL (7.4-10.4); MONOCYTES # (AUTO) 0.7 X10'3 (0-0.9); MONOCYTES % (AUTO) 10.5 % (2-12); NEUTROPHILS % (AUTO) 60.8 % (42-75); PLATELET COUNT 207 X10'3 (140-440); RED BLOOD COUNT 4.47 X10'6 (4.70-6.10); RED CELL DISTRIBUTION WIDTH 13.4 % (11.5-14.5); WHITE BLOOD COUNT 6.6 X10'3 (4.5-11.0)
[2024-03-10 20:02] LABS: ALANINE AMINOTRANSFERASE 26 U/L (12-78); ALBUMIN 4.2 G/DL (3.4-5.0); ALBUMIN/GLOBULIN RATIO 1.3 (1.1-1.5); ALKALINE PHOSPHATASE 57 IU/L (46-116); ANION GAP 7 (8-16); ASPARTATE AMINO TRANSFERASE 22 U/L (10-37); BILIRUBIN,TOTAL 0.3 MG/DL (0.1-1.0); BLOOD UREA NITROGEN 19 MG/DL (7-18); BUN/CREATININE RATIO 18.6 (10.0-20.0); CALCIUM 9.3 MG/DL (8.5-10.1); CHLORIDE 105 MMOL/L (99-107); CREATININE 1.02 MG/DL (0.60-1.10); GLUCOSE 96 MG/DL (70-104); POTASSIUM 3.6 MMOL/L (3.5-5.1); SODIUM 139 MMOL/L (135-145); TOTAL CARBON DIOXIDE 27.5 MMOL/L (24-32); TOTAL PROTEIN 7.4 G/DL (6.4-8.2); eCRCL 107 ML/MIN; eGFR > 90 ML/MIN
[2024-03-10 22:11] VITALS: TEMP 98.5
== END 2024-03-10 22:16 | disposition home or self-care (01) ==
LOC: ER 19:25
DX: T67.5XXA Heat exhaustion, unspecified, initial encounter (principal); F10.90 Alcohol use, unspecified, uncomplicated; F14.90 Cocaine use, unspecified, uncomplicated; Z79.899 Other long term (current) drug therapy; Z87.442 Personal history of urinary calculi; Z98.890 Other specified postprocedural states; X58.XXXA Exposure to other specified factors, initial encounter; Y93.89 Activity, other specified; Y92.89 Other specified places as the place of occurrence of the external cause; Y99.8 Other external cause status
CPT/HCPCS: 36415; 80053; 85025; 99283

== ENCOUNTER 2024-04-25 10:55 | Emergency (ER) | payer MEDICAID ==
[~2024-04-25] VITALS: Ht 182.9 cm; Wt 71.2 kg
[2024-04-25 11:28] LABS: BASOPHILS % (AUTO) 0.7 % (0-1); EOSINOPHILS # (AUTO) 0.2 X10'3 (0-0.9); EOSINOPHILS % (AUTO) 4.1 % (0-6); HEMATOCRIT 44.1 % (42.0-52.0); HEMOGLOBIN 14.4 g/dl (14.0-17.9); LYMPHOCYTES # (AUTO) 1.3 X10'3 (1.1-4.8); LYMPHOCYTES % (AUTO) 25.8 % (21-51); MEAN CORPUSCULAR HEMOGLOBIN 30.1 PG (27.0-31.0); MEAN CORPUSCULAR HGB CONC 32.6 g/dL (33.0-36.5); MEAN CORPUSCULAR VOLUME 92.3 FL (78-98); MEAN PLATELET VOLUME 8.4 FL (7.4-10.4); MONOCYTES # (AUTO) 0.6 X10'3 (0-0.9); MONOCYTES % (AUTO) 11.6 % (2-12); NEUTROPHILS % (AUTO) 57.8 % (42-75); PLATELET COUNT 203 X10'3 (140-440); RED BLOOD COUNT 4.78 X10'6 (4.70-6.10); RED CELL DISTRIBUTION WIDTH 14.5 % (11.5-14.5); WHITE BLOOD COUNT 5.1 X10'3 (4.5-11.0)
[2024-04-25 11:47] LABS: ALBUMIN 3.9 G/DL (3.4-5.0); ANION GAP 5 (8-16); BLOOD UREA NITROGEN 16 MG/DL (7-18); BUN/CREATININE RATIO 17.6 (10.0-20.0); CALCIUM 8.7 MG/DL (8.5-10.1); CHLORIDE 104 MMOL/L (99-107); CREATININE 0.91 MG/DL (0.60-1.10); GLUCOSE 92 MG/DL (70-104); PRO BRAIN NATRIURETIC PEPTIDE < 30 PG/ML (0-125); SODIUM 140 MMOL/L (135-145); TOTAL CARBON DIOXIDE 31.5 MMOL/L (24-32); eCRCL 122 ML/MIN; eGFR > 90 ML/MIN
[2024-04-25 12:19] LABS: FREE T4 (FREE THYROXINE) 0.84 NG/DL (0.73-1.40); THYROID STIMULATING HORMONE 1.64 ulU/ml (0.34-4.50)
[2024-04-25 12:21] LABS: BILIRUBIN,URINE NEGATIVE (Neg); CLARITY,URINE CLEAR (Clear); COLOR,URINE YELLOW (Yellow); GLUCOSE, URINE NEGATIVE (Neg); KETONES,URINE NEGATIVE (Neg); LEUKOCYTE ESTERASE ,URINE NEGATIVE (Neg); NITRITES, URINE NEGATIVE (Neg); OCCULT BLOOD,URINE TRACE-INTACT (Neg); PH,URINE 6.5 (4.8-8.0); PROTEIN,URINE NEGATIVE (Neg); UROBILINOGEN,URINE 0.2 E.U/dL (0.2-1.0)
[2024-04-25 12:25] LABS: URINE AMPHETAMINE SCREEN NEGATIVE (Neg); URINE BARBITUATE SCREEN NEGATIVE (Neg); URINE BENZODIAZEPINES SCREEN NEGATIVE (Neg); URINE CANNABINOID SCREEN NEGATIVE (Neg); URINE COCAINE SCREEN NEGATIVE (Neg); URINE METHADONE SCREEN NEGATIVE (Neg); URINE OPIATE SCREEN NEGATIVE (Neg); URINE PHENCYCLIDINE SCREEN NEGATIVE (Neg)
[2024-04-25 12:28] LABS: SQUAMOUS EPITHELIAL CELL,UR FEW /LPF (FEW); UA COLLECTION TYPE CLN CATCH MIDSTREAM
[2024-04-25 12:29] LABS: BACTERIA,URINE NONE SEEN /HPF (Neg); MUCUS STRANDS FEW /LPF (Neg); WBC,URINE 0-4 /HPF (0-4)
[2024-04-25] MEDS: aspirin 325mg tablet PO ONE (15:04)
[2024-04-25 15:08] VITALS: BP 124/78; PULSE 68; RESP 14; TEMP 98.1; O2SAT 97
== END 2024-04-25 15:11 | disposition home or self-care (01) ==
LOC: ER 10:55
DX: R07.89 Other chest pain (principal); R94.31 Abnormal electrocardiogram [ECG] [EKG]; F10.90 Alcohol use, unspecified, uncomplicated; F14.90 Cocaine use, unspecified, uncomplicated; Z79.899 Other long term (current) drug therapy; Z87.442 Personal history of urinary calculi; Z98.890 Other specified postprocedural states
CPT/HCPCS: 36415; 71045; 80048; 80305; 81001; 83880; 84439; 84443; 84484; 85025; 93005; 99285

== ENCOUNTER 2024-06-26 09:33 | Emergency (ER) | payer MEDICAID ==
[~2024-06-26] VITALS: Ht 182.9 cm; Wt 72.7 kg
[2024-06-26] MEDS: ondansetron/PF 4mg/2ml inj IV ONE (10:22)
[2024-06-26] MEDS: normal saline 1000ML IV soln IVB ONE (10:22)
[2024-06-26 10:25] LABS: BASOPHILS % (AUTO) 0.5 % (0-1); EOSINOPHILS # (AUTO) 0.1 X10'3 (0-0.9); EOSINOPHILS % (AUTO) 1.6 % (0-6); HEMATOCRIT 51.7 % (42.0-52.0); HEMOGLOBIN 16.8 g/dl (14.0-17.9); LYMPHOCYTES # (AUTO) 2.6 X10'3 (1.1-4.8); LYMPHOCYTES % (AUTO) 40.3 % (21-51); MEAN CORPUSCULAR HEMOGLOBIN 30.3 PG (27.0-31.0); MEAN CORPUSCULAR HGB CONC 32.5 g/dL (33.0-36.5); MEAN CORPUSCULAR VOLUME 93.2 FL (78-98); MEAN PLATELET VOLUME 8.2 FL (7.4-10.4); MONOCYTES # (AUTO) 0.2 X10'3 (0-0.9); MONOCYTES % (AUTO) 2.4 % (2-12); NEUTROPHILS # (AUTO) 3.5 X10'3 (1.8-7.7); NEUTROPHILS % (AUTO) 55.2 % (42-75); PLATELET COUNT 296 X10'3 (140-440); RED BLOOD COUNT 5.55 X10'6 (4.70-6.10); RED CELL DISTRIBUTION WIDTH 14.2 % (11.5-14.5); WHITE BLOOD COUNT 6.4 X10'3 (4.5-11.0)
[2024-06-26 10:36] LABS: ALANINE AMINOTRANSFERASE 24 U/L (12-78); ALBUMIN/GLOBULIN RATIO 1.2 (1.1-1.5); ALKALINE PHOSPHATASE 67 IU/L (46-116); ANION GAP 13 (8-16); ASPARTATE AMINO TRANSFERASE 29 U/L (10-37); BILIRUBIN,TOTAL 0.4 MG/DL (0.1-1.0); BLOOD UREA NITROGEN 19 MG/DL (7-18); BUN/CREATININE RATIO 17.3 (10.0-20.0); CALCIUM 8.3 MG/DL (8.5-10.1); CHLORIDE 106 MMOL/L (99-107); ETHANOL 71 MG/DL (<10); GLUCOSE 97 MG/DL (70-104); LIPASE 31 U/L (16-77); MAGNESIUM 2.2 MG/DL (1.5-2.4); POTASSIUM 3.3 MMOL/L (3.5-5.1); SODIUM 143 MMOL/L (135-145); TOTAL PROTEIN 7.4 G/DL (6.4-8.2); eCRCL 103 ML/MIN; eGFR > 90 ML/MIN
[2024-06-26 12:57] VITALS: BP 105/75; PULSE 75; RESP 16; O2SAT 99
== END 2024-06-26 12:53 | disposition home or self-care (01) ==
LOC: ER 09:33
DX: R11.2 Nausea with vomiting, unspecified (principal); F10.90 Alcohol use, unspecified, uncomplicated; R55 Syncope and collapse; R51.9 Headache, unspecified; F14.10 Cocaine abuse, uncomplicated; Z79.899 Other long term (current) drug therapy; Z90.89 Acquired absence of other organs
CPT/HCPCS: 36415; 71045; 80053; 80320; 83690; 83735; 85025; 96361; 96374; 99284; J2405; J7030

== ENCOUNTER 2024-08-25 00:09 | Emergency (ER) | payer MEDICAID ==
[~2024-08-25] VITALS: Ht 182.9 cm; Wt 68.2 kg
[2024-08-25 00:19] VITALS: BP 102/76; PULSE 88; RESP 19; TEMP 97.5; O2SAT 98
[2024-08-25 00:36] LABS: BASOPHILS % (AUTO) 0.7 % (0-1); EOSINOPHILS # (AUTO) 0.1 X10'3 (0-0.9); EOSINOPHILS % (AUTO) 1.7 % (0-6); HEMATOCRIT 44.6 % (42.0-52.0); HEMOGLOBIN 15.1 g/dl (14.0-17.9); LYMPHOCYTES # (AUTO) 2.2 X10'3 (1.1-4.8); LYMPHOCYTES % (AUTO) 38.7 % (21-51); MEAN CORPUSCULAR HEMOGLOBIN 31.3 PG (27.0-31.0); MEAN CORPUSCULAR HGB CONC 33.8 g/dL (33.0-36.5); MEAN CORPUSCULAR VOLUME 92.6 FL (78-98); MEAN PLATELET VOLUME 8.1 FL (7.4-10.4); MONOCYTES # (AUTO) 0.5 X10'3 (0-0.9); MONOCYTES % (AUTO) 9.4 % (2-12); NEUTROPHILS # (AUTO) 2.8 X10'3 (1.8-7.7); NEUTROPHILS % (AUTO) 49.5 % (42-75); PLATELET COUNT 215 X10'3 (140-440); RED BLOOD COUNT 4.82 X10'6 (4.70-6.10); RED CELL DISTRIBUTION WIDTH 13.8 % (11.5-14.5); WHITE BLOOD COUNT 5.7 X10'3 (4.5-11.0)
[2024-08-25 00:49] LABS: ALANINE AMINOTRANSFERASE 23 U/L (12-78); ALBUMIN 4.2 G/DL (3.4-5.0); ALBUMIN/GLOBULIN RATIO 1.2 (1.1-1.5); ALKALINE PHOSPHATASE 67 IU/L (46-116); ANION GAP 9 (8-16); ASPARTATE AMINO TRANSFERASE 20 U/L (10-37); BILIRUBIN,TOTAL 0.3 MG/DL (0.1-1.0); BLOOD UREA NITROGEN 23 MG/DL (7-18); BUN/CREATININE RATIO 22.5 (10.0-20.0); CALCIUM 9.4 MG/DL (8.5-10.1); CHLORIDE 104 MMOL/L (99-107); CREATININE 1.02 MG/DL (0.60-1.10); GLUCOSE 106 MG/DL (70-104); LIPASE 24 U/L (16-77); POTASSIUM 3.9 MMOL/L (3.5-5.1); SODIUM 143 MMOL/L (135-145); TOTAL CARBON DIOXIDE 29.6 MMOL/L (24-32); TOTAL PROTEIN 7.8 G/DL (6.4-8.2); eCRCL 104 ML/MIN; eGFR > 90 ML/MIN
== END 2024-08-25 02:51 | disposition left against medical advice (07) ==
LOC: ER 00:10
DX: Z53.21 Procedure and treatment not carried out due to patient leaving prior to being seen by health care provider (principal)
CPT/HCPCS: 36415; 80053; 83690; 85025

== ENCOUNTER 2024-11-12 20:56 | Emergency (ER) | payer MEDICAID ==
[~2024-11-12] VITALS: Ht 182.9 cm; Wt 78.0 kg
[2024-11-12] MEDS: normal saline 1000ML IV soln IVB ONE (22:06)
[2024-11-12] MEDS: ondansetron/PF 4mg/2ml inj IV ONE (22:10)
[2024-11-12] MEDS: dexamethasone sod phosphate 10mg/ml inj IV STA (22:11)
[2024-11-12] MEDS: ketorolac trometh 15mg/ml vial 15 MG/ML ML IV ONE (22:11)
[2024-11-12 22:40] LABS: ALBUMIN 3.8 G/DL (3.4-5.0); ANION GAP 9 (8-16); BLOOD UREA NITROGEN 19 MG/DL (7-18); BUN/CREATININE RATIO 18.6 (10.0-20.0); CALCIUM 8.7 MG/DL (8.5-10.1); CHLORIDE 103 MMOL/L (99-107); CREATININE 1.02 MG/DL (0.60-1.10); GLUCOSE 89 MG/DL (70-104); POTASSIUM 4.1 MMOL/L (3.5-5.1); SODIUM 142 MMOL/L (135-145); TOTAL CARBON DIOXIDE 29.9 MMOL/L (24-32); eCRCL 118 ML/MIN; eGFR > 90 ML/MIN
[2024-11-12 23:07] LABS: BASOPHILS % (AUTO) 0.4 % (0-1); EOSINOPHILS % (AUTO) 0.1 % (0-6); HEMATOCRIT 39.3 % (42.0-52.0); HEMOGLOBIN 13.1 g/dl (14.0-17.9); LYMPHOCYTES # (AUTO) 0.6 X10'3 (1.1-4.8); MEAN CORPUSCULAR HEMOGLOBIN 30.8 PG (27.0-31.0); MEAN CORPUSCULAR HGB CONC 33.4 g/dL (33.0-36.5); MEAN CORPUSCULAR VOLUME 92.1 FL (78-98); MONOCYTES # (AUTO) 0.5 X10'3 (0-0.9); MONOCYTES % (AUTO) 14.4 % (2-12); NEUTROPHILS # (AUTO) 2.6 X10'3 (1.8-7.7); NEUTROPHILS % (AUTO) 69.1 % (42-75); PLATELET COUNT 142 X10'3 (140-440); RED BLOOD COUNT 4.27 X10'6 (4.70-6.10); RED CELL DISTRIBUTION WIDTH 13.1 % (11.5-14.5); WHITE BLOOD COUNT 3.7 X10'3 (4.5-11.0)
[2024-11-12] MEDS: acetaminophen 1,000mg/100ml IV 100 ML IV ONE (23:22)
[2024-11-12] MEDS ORDERED: TAM75C PO (23:30)
[2024-11-12] MEDS: oseltamivir phos 75mg capsule PO ONE (23:43)
[2024-11-12 23:51] VITALS: BP 126/76; PULSE 68; RESP 16; TEMP 98.5; O2SAT 98
== END 2024-11-12 23:48 | disposition home or self-care (01) ==
LOC: ER 20:57
DX: J10.1 Influenza due to other identified influenza virus with other respiratory manifestations (principal); F17.210 Nicotine dependence, cigarettes, uncomplicated; F14.90 Cocaine use, unspecified, uncomplicated; F10.90 Alcohol use, unspecified, uncomplicated; Z79.899 Other long term (current) drug therapy; Z87.442 Personal history of urinary calculi; Y90.9 Presence of alcohol in blood, level not specified; Z20.822 Contact with and (suspected) exposure to COVID-19
CPT/HCPCS: 36415; 80048; 85025; 87502; 87503; 87811; 96361; 96365; 96375; 99284; J0131; J1100; J1885; J2405; J7030

== ENCOUNTER 2025-03-14 08:52 | Emergency (ER) | payer MEDICAID ==
[~2025-03-14] VITALS: Ht 182.9 cm; Wt 64.8 kg
[2025-03-14 08:54] VITALS: BP 127/87; PULSE 77; RESP 18; O2SAT 100
[2025-03-14] MEDS ORDERED: BUPR1FIL3 SL ×2 (09:16→09:18)
--- NOTE | 2025-03-14 09:16 | Physician Documentation ---
HPI ~ General Chief Complaint: Medication Request Stated Complaint: DRUG WITHDRAWS Time Seen by MD: 09:04 OK to notify your PCP?: Yes Primary Medical Doctor: [facility] [place] Source: patient Mode of Arrival: POV Exam Limitations: no limitations History of Present Illness HPI Comments 30-year-old male presents for opiate use disorder treatment. He states that he is taking 10 mg [place] goes proximally 15 per day. The substance abuse navigator at bedside speaking with patient. Last dose of [place] was yesterday. Medication Reconciliation Allergies: Coded Allergies: No Known Allergies (Unverified , 08/25/24) Scheduled Clotrimazole (Clotrimazole), 1 APPLIC TOP Q12H Scheduled PRN Home Med List (No Home Medications), for for anxiety/agitation, (Reported) Past Medical History Past Medical History: Kidney Stones Past Surgical History: tonsillectomy, other Alcohol Use: Heavy Drug Use: cocaine Lives with: Father Lives In: Home Occupation: employed Review of Systems All Other Systems at this time: Reviewed and Negative Physical Exam Physical Exam Vital Signs: RN Vital Signs have been reviewed: Yes, Temperature: 99.1, Source: Temporal, Heart Rate: 77, Respiratory Rate: 18, BP: 127/87, Pulse Oximetry: 100, Weight: 64.850 Oxygen Flow Rate: 0 Pulse Oximetry Reflects: adequate oxygenation Physical Exam General: Alert, no distress. HEENT: No injection, moist mucous membranes. Neck: Full range of motion. Respiratory: No respiratory distress, equal chest rise and fall. Chest: No accessory muscle use. Cardiovascular: Regular rate and rhythm. Gastrointestinal: Nondistended. Extremities: Normal range of motion, no deformity. Neurologic: Oriented x4. Psychiatric: Normal mood and affect. Skin: Normal color, warm and dry. Progress Results/Orders Results/Orders Vital Signs 03/14/25 08:54 Temp 99.1 Pulse 77 Resp 18 B/P (MAP) 127/87 Pulse Ox 100 O2 Flow Rate 0 Medical Decision Making Additional info obtained from: old records Findings 30-year-old male presents for initiating treatment of opiate use disorder. Substance abuse navigator Jody is at bedside and speaking with the patient ab out treatment plans. She is sending him to a [facility] rehab program for them to follow up within the next 3 days. I will prescribe a 3 day starting dose of Suboxone 3 times daily 8 mg film. They can return back here for any new or worsening symptoms. Departure Disposition: 01 HOME / SELF CARE / HOMELESS Impression: Primary Impression: General medical exam Additional Impression: Opiate dependence Condition: Stable Discharge Instructions: Opioid Use Disorder Additional Instructions: Please follow up with [facility] for therapy and further Suboxone treatment plan within the next 3 days. Referrals: NO PRIMARY CARE PROVIDER (PCP) Prescriptions Buprenorphine Hcl/Naloxone Hcl (Suboxone 8 Mg-2 Mg Sl Film) 8 Mg-2 Mg Film 1 STRIP SL TID for 3 Days, #9 STRIP Prov: AURA HEREDIA 03/14/25 Education Educated: Patient Educated regarding: diagnosis, treatment, prognosis, need for follow up Additional Comment Medical Screen Exam This patient recieved a medical screening examination. After reviewing the individual's medical complaints with presenting symptoms and performing an a ppropriate physical examination, it was determined that no immediate life- threatening emergency medical condition is present. This individual is also not a women having contractions. Signature Scribe Signature: . Attestation: Scribed for Aura Herediap by Aura Perry NP . 03/14/25 09:18 Parts of this note were created using [employer] voice recognition software program. While efforts were made to correct any mistakes made by this voice recognition software program, nonsensical phrases may remain in this note. In addition, there may be errors and syntax, grammar, content and spelling. AURA HEREDIA Mar 14, 2025 09:16
[2025-03-14 09:29] VITALS: TEMP 99.1
== END 2025-03-14 09:31 | disposition home or self-care (01) ==
LOC: ER 08:52
DX: F11.20 Opioid dependence, uncomplicated (principal); F10.90 Alcohol use, unspecified, uncomplicated; Z90.89 Acquired absence of other organs; Y90.9 Presence of alcohol in blood, level not specified
CPT/HCPCS: 99283

== ENCOUNTER 2025-03-29 15:41 | Emergency (ER) | payer MEDICAID ==
[~2025-03-29] VITALS: Ht 182.9 cm; Wt 65.6 kg
[2025-03-29 16:07] VITALS: BP 109/69; PULSE 77; RESP 16; O2SAT 99
[2025-03-29] MEDS ORDERED: BUPR1TAB45 SL (17:01)
--- NOTE | 2025-03-29 17:02 | Physician Documentation ---
HPI ~ General Chief Complaint: Medication Refill Stated Complaint: MEDICATION REFILL Time Seen by MD: 16:23 Primary Medical Doctor: [facility] [place] History of Present Illness HPI Comments Patient is seen today with complaints of opioid use disorder and states he needs a refill of his Suboxone. Patient states he is taking about 8-16 mg sublingual per day. Patient admits to use of 10-30 [place] 10s per day for the last six months or so. Patient states his cravings are quite high. Patient has no other concern or complaint at this time. He denies any severe significant withdrawal but states his last dose was yesterday of the Suboxone. Medication Reconciliation Allergies: Coded Allergies: No Known Allergies (Unverified , 03/29/25) Scheduled Clotrimazole (Clotrimazole), 1 APPLIC TOP Q12H Scheduled PRN Buprenorphine HCl/Naloxone HCl (Buprenorphin-Naloxon 8-2 mg Tb), 1 TAB SL Q12H PRN PRN for f11.20 Home Med List (No Home Medications), for for anxiety/agitation, (Reported) Past Medical History Past Medical History: Kidney Stones Past Surgical History: tonsillectomy, other Alcohol Use: Heavy Drug Use: cocaine Lives with: Father Lives In: Home Occupation: employed Review of Systems Constitutional: Denies: chills, fever, weakness Eyes: Denies: pain, blurred vision ENT: Denies: ear pain, nose pain, throat pain, mouth pain Respiratory: Denies: cough, shortness of breath Cardiovascular: Denies: chest pain, palpitations Gastrointestinal: Denies: abdominal pain, nausea, vomiting Genitourinary: Denies: burning, dysuria Male Genitalia: Denies: penile discharge, testicular pain Neurological: Denies: headache, dizziness Musculoskeletal: Denies: pain, swelling Integumentary: Denies: rash, lesions Allergic/Immunologic: Denies: hives, itching Hematologic/Lymphatic: Denies: no symptoms reported Psychiatric: Denies: depression, anxiety Physical Exam Physical Exam Vital Signs: Temperature: 98.3, Source: Temporal, Heart Rate: 77, Respiratory Rate: 16, BP: 109/69, Pulse Oximetry: 99, Weight: 65.600 Oxygen Flow Rate: 0 Physical Exam General: Awake and Alert, no acute distress. HEENT: Conjunctiva pink, Sclera clear, Mucus Membranes moist. Neck: Supple without masses and tenderness. Resp: Unlabored. Lungs clear to auscultation bilaterally. Heart: Regular Rate and rhythm, normal S1 and S2 without murmur, rub or gallop. Abdomen: Soft and non tender no organomegaly Extremities: No cyanosis,clubbing or edema. Skin: Warm and Dry. Progress Results/Orders Results/Orders Vital Signs 03/29/25 16:07 Temp 98.3 Pulse 77 Resp 16 B/P (MAP) 109/69 Pulse Ox 99 O2 Flow Rate 0 Medical Decision Making Findings Patient is seen today with complaints of opioid use disorder and states he needs a refill of his Suboxone. Patient states he is taking about 8-16 mg sublingual per day. Patient admits to use of 10-30 Kemme[place] 10s per day for the last six months or so. Patient states his cravings are quite high. Patient has no other concern or complaint at this time. He denies any severe significant withdrawal but states his last dose was yesterday of the Suboxone. Patient was given refill of Suboxone tablets 8/2 mg tablets one tab sublingual twice a day for seven days. Patient will follow up with [facility] for medically assisted treatment with Suboxone follow up. Patient will return to ED with any worsening, concerning or changing symptoms. Departure Disposition: 01 HOME / SELF CARE / HOMELESS Impression: Primary Impression: Opioid use disorder, moderate, dependence Condition: Improved Discharge Instructions: Medicine Refill at the Emergency Department Additional Instructions: Patient was given refill of Suboxone tablets 8/2 mg tablets one tab sublingual twice a day for seven days. Patient will follow up with [facility] for medically assisted treatment with Suboxone follow up. Patient will return to ED with any worsening, concerning or changing symptoms. Referrals: NO PRIMARY CARE PROVIDER (PCP) Prescriptions Buprenorphine HCl/Naloxone HCl (Buprenorphin-Naloxon 8-2 mg Tb) 8 Mg-2 Mg Tab.subl 1 TAB SL Q12H PRN PRN for f11.20 for 7 Days, #14 TAB 0 Refills Prov: GAMA JACKSON 03/29/25 Signature Scribe Signature: No scribe Attestation: No scribe GAMA JACKSON Mar 29, 2025 17:02
[2025-03-29 17:14] VITALS: TEMP 98.3
== END 2025-03-29 17:15 | disposition home or self-care (01) ==
LOC: ER 15:41
DX: F11.20 Opioid dependence, uncomplicated (principal); Z76.0 Encounter for issue of repeat prescription; F10.90 Alcohol use, unspecified, uncomplicated; Z88.0 Allergy status to penicillin; Z90.89 Acquired absence of other organs; Y90.9 Presence of alcohol in blood, level not specified
CPT/HCPCS: 99281

== ENCOUNTER 2025-04-17 11:58 | Emergency (ER) | payer MEDICAID ==
[~2025-04-17] VITALS: Ht 182.9 cm; Wt 68.2 kg
[~2025-04-17 11:58] MED LIST changes: +BUPR1TAB45 SL
[2025-04-17 12:06] VITALS: BP 109/75; PULSE 73; RESP 18; O2SAT 98
[2025-04-17] MEDS ORDERED: NALO4SPR BOTHNARES (12:13)
[2025-04-17] MEDS ORDERED: BUPR1FIL3 SL ×2 (12:13→16:31)
--- NOTE | 2025-04-17 12:15 | Physician Documentation ---
HPI ~ General Chief Complaint: Medication Request Stated Complaint: MED REQUEST Time Seen by MD: 12:15 Primary Medical Doctor: [facility] [place] History of Present Illness HPI Comments 30-year-old male with a history of opioid dependence on Suboxone presents to the ER was seeing a refill on his Suboxone. He reports that he typically takes 8/2 film by mouth twice daily. He does not have a local primary care provider as of yet. He is experiencing symptoms of mild withdrawal today as he has not had a film to take. Medication Reconciliation Allergies: Coded Allergies: No Known Allergies (Unverified , 04/17/25) Scheduled Buprenorphine Hcl/Naloxone Hcl (Suboxone 8 Mg-2 Mg Sl Film), 1 STRIP SL BID Clotrimazole (Clotrimazole), 1 APPLIC TOP Q12H Naloxone HCl (Narcan), 1 SPRAYS BOTHNARES ONCE Scheduled PRN Buprenorphine HCl/Naloxone HCl (Buprenorphin-Naloxon 8-2 mg Tb), 1 TAB SL Q12H PRN PRN for f11.20 Home Med List (No Home Medications), for for anxiety/agitation, (Reported) Past Medical History Past Medical History: Kidney Stones Past Surgical History: tonsillectomy, other Alcohol Use: Heavy Drug Use: cocaine Lives with: Father Lives In: Home Occupation: employed Review of Systems ROS As stated above in the HPI, otherwise all systems are reviewed and negative. Physical Exam Physical Exam Vital Signs: Temperature: 98.0, Heart Rate: 73, Respiratory Rate: 18, BP: 109/75, Pulse Oximetry: 98, Weight: 68.180 Physical Exam General: Alert, no apparent distress. HEENT: PERRL, EOMI, no injection, moist mucous membranes. Neck: Full range of motion. Respiratory: Lungs clear, no respiratory distress. Chest: No accessory muscle use. Cardiovascular: Regular rate and rhythm, no murmurs. Gastrointestinal: Soft, nontender, nondistended. Bowels sounds present. Extremities: Normal range of motion, no deformity. Neurologic: Oriented x4. Psychiatric: Normal mood and affect. Skin: Normal color, warm and dry. No edema, no ecchymosis. Progress Results/Orders Results/Orders Completed Orders - JAY LAND NP Buprenorphine/Naloxone Sl Film (Suboxone (04/17/25 12:25) Medications Received in ER Medications (Trade) Dose Ordered Sig/Shyanne Route PRN Reason Start Time Stop Time Status Last Admin Dose Admin (Suboxone 8MG-2MG SL film) 1 film NOW SL 04/17/25 12:25 04/17/25 12:42 DC 04/17/25 12:36 1 FILM Vital Signs 04/17/25 04/17/25 12:06 12:40 Temp 98.0 98.0 Pulse 73 Resp 18 B/P (MAP) 109/75 Pulse Ox 98 Medical Decision Making Differential Dx:Considerations: Include: Adverse circumstances, Economic, Psychosocial, Medical services unavail., Medication refill, Medication non- compliance Departure Time of Disposition: 12:12 Disposition: 01 HOME / SELF CARE / HOMELESS Impression: Primary Impression: General medical exam Additional Impression: Opiate dependence Condition: Stable Discharge Instructions: Opioid Use Disorder Additional Instructions: One week of suboxone sent to your pharmacy along with naloxone. Carry naloxone with you in case a friend overdoses on opioid. Try to establish with the [facility] or a local clinic for further refills. Return as needed. Referrals: NO PRIMARY CARE PROVIDER (PCP) Prescriptions Buprenorphine HCl/Naloxone HCl (Buprenorphin-Naloxon 8-2 mg Tb) 8 Mg-2 Mg Tab.subl 1 TAB SL Q12H PRN PRN for f11.20 for 7 Days, #14 TAB 0 Refills Prov: JAY LAND NP 04/17/25 Naloxone HCl (Narcan) 4 Mg/Actuation [place] 1 SPRAYS BOTHNARES ONCE for 14 Days, #1 EA 0 Refills Prov: JAY LAND NP 04/17/25 Education Educated: Patient Educated regarding: diagnosis, treatment, prognosis, need for follow up Signature Scribe Signature: x Attestation: The note accurately reflects work and decisions made by me.Jay Perry NP 04/17/25 12:44 JAY LAND NP Apr 17, 2025 12:15
[2025-04-17] MEDS: buprenorphine/naloxone 8MG-2MG SUBlingual film SL SCH (12:36)
[2025-04-17 12:40] VITALS: TEMP 98
[2025-04-17] MEDS ORDERED: BUPR1TAB45 SL (16:32)
== END 2025-04-17 12:42 | disposition home or self-care (01) ==
LOC: ER 11:58
DX: F11.20 Opioid dependence, uncomplicated (principal); F14.90 Cocaine use, unspecified, uncomplicated; F10.90 Alcohol use, unspecified, uncomplicated; Z87.442 Personal history of urinary calculi; Z90.89 Acquired absence of other organs; Z79.899 Other long term (current) drug therapy; Y90.9 Presence of alcohol in blood, level not specified
CPT/HCPCS: 99283

== ENCOUNTER 2025-07-01 08:52 | Emergency (ER) | payer MEDICAID ==
[~2025-07-01] VITALS: Ht 182.9 cm; Wt 66.0 kg
[~2025-07-01 08:52] MED LIST changes: +NALO4SPR BOTHNARES
--- NOTE | 2025-07-01 10:25 | Physician Documentation ---
HPI ~ General Chief Complaint: Tooth Problem Stated Complaint: HAND AND TOOTH PAIN Time Seen by MD: 09:42 Primary Medical Doctor: [facility] [place] Source: patient Mode of Arrival: POV Exam Limitations: no limitations History of Present Illness HPI Comment Patient presents with dental pain that has been ongoing for the past year worsening over the past week. States pain is 10/10 and is preventing him from sleeping. He has tried ibuprofen. He got antibiotics from a walk-in clinic that he has been taking. He states no improvement. He has a about three antibiotic left. He is also using an oral rinse which was given to him at the walk-in clinic. Sounds like this was chlorhexidine rinse. No fevers or chills. He furthermore is complaining of left hand pain that has been ongoing for the past year. He states he thinks he has a boxer's fracture. Again, no recent injury and pain has been ongoing for one year. Medication Reconciliation Allergies: Coded Allergies: No Known Allergies (Unverified , 07/01/25) Scheduled Amox Tr/Potassium Clavulanate (Augmentin 875-125 Tablet), 1 TAB PO Q12H Clotrimazole (Clotrimazole), 1 APPLIC TOP Q12H Ibuprofen* (Motrin*), 800 MG PO Q6H Naloxone HCl (Narcan), 1 SPRAYS BOTHNARES ONCE Scheduled PRN Buprenorphine HCl/Naloxone HCl (Buprenorphin-Naloxon 8-2 mg Tb), 1 TAB SL Q12H PRN PRN for f11.20 Home Med List (No Home Medications), for for anxiety/agitation, (Reported) Past Medical History Past Medical History: Kidney Stones Past Surgical History: tonsillectomy, other Smoking Status: Current every day smoker (Patient vapes) Alcohol Use: Heavy Drug Use: cocaine Lives with: Father Lives In: Home Occupation: employed Review of Systems ROS Review of systems negative except documented in HPI. Physical Exam Vital Signs: RN Vital Signs have been reviewed: Yes, Temperature: 97.3, Source: Temporal, Heart Rate: 81, Respiratory Rate: 18, BP: 125/87, Pulse Oximetry: 97, Weight: 66.000 Oxygen Flow Rate: 0 Pulse Oximetry Reflects: adequate oxygenation Physical Exam General: Awake, alert, oriented. No apparent distress Dental exam: The right lower wisdom tooth is visible. There is pain with palpation but no definite abscess formation. No erythema of the gingiva. Oropharynx without erythema. Airway is patent. Respiratory: Lungs are clear to auscultation bilaterally. No respiratory distress. Chest: Normal shape and size. No accessory muscle use. Cardiovascular: Regular rate and rhythm. S1-S2. No murmur, gallop, rub. Left hand: There is pain with palpation over the 5th metacarpal. Psychiatric: Normal mood and affect. Skin: Normal color. Warm and dry. Progress Results/Orders Results/Orders Completed Orders - MONALISA THOMSON NP Hydrocodone/Apap 10/325 ([place] 10/325mg (07/01/25 10:25) Amox Tr/Potassium Clavulanate (Augmentin (07/01/25 10:25) Medications Received in ER Medications (Trade) Dose Ordered Sig/Shyanne Route PRN Reason Start Time Stop Time Status Last Admin Dose Admin ([place] 10/325mg tab) 1 tab ONCE ONCE PO 07/01/25 10:25 07/01/25 10:32 DC 07/01/25 10:43 1 TAB (Augmentin 875-125mg tablet) 1 tab ONCE ONCE PO 07/01/25 10:25 07/01/25 10:32 DC 07/01/25 10:42 1 TAB Vital Signs 07/01/25 07/01/25 07/01/25 08:54 10:43 10:54 Temp 97.3 98.1 Pulse 81 77 Resp 18 18 16 B/P (MAP) 125/87 132/80 Pulse Ox 97 99 O2 Flow Rate 0 Medical Decision Making Additional information obtaine: N/A Findings Patient presents secondary to impacted wisdom tooth that is causing him pain. He has had this problem for the past year. Has taken ibuprofen. Currently, there is no evidence of acute oral emergency. Encouraged to follow up with his dentist. His pain was treated with a [place] while in the hospital. He was educated to not drive. He states that his significant other we will be driving him. Encouraged to continue ibuprofen. Antibiotics were provided. Of note, he is currently on antibiotics but does not know which ones he is taking. Continues to have pain and inflammation. Patient does smoke. Risk factors reviewed. He was encouraged to quit. Differential Dx:Considerations: Include: Periapical abscess, Peridontal abscess, Tooth avulsion, Tooth eruption, Tooth Fracture, Tooth subluxation Departure Time of Disposition: 10:22 Disposition: 01 HOME / SELF CARE / HOMELESS Impression: Primary Impression: Dental abscess Condition: Stable Discharge Instructions: Dental Pain Additional Instructions: Recommend that you take your antibiotics to completion. Follow up with your dentist. Warm salt water rinses are recommended for pain and discomfort. It also helps with inflammation. Take ibuprofen with food. Recommend eating probiotic foods such as yogurt while taking antibiotics. Soft diet we will also help. Return for new or worsening symptoms. Referrals: NO PRIMARY CARE PROVIDER (PCP) Prescriptions Ibuprofen* (Motrin*) 400 Mg Tablet 800 MG PO Q6H for 7 Days, #21 TAB Prov: MONALISA THOMSON TIE SAWYER 07/01/25 Amox Tr/Potassium Clavulanate (Augmentin 875-125 Tablet) 1 Each Tablet 1 TAB PO Q12H for 10 Days, #20 TAB Prov: MONALISA THOMSON NP 07/01/25 Education Educated: Patient Educated regarding: diagnosis, treatment, need for follow up Signature Scribe Signature: No scribe Attestation: The note accurately reflects work and decisions made by me.Monalisa Thomson - S[place]ANE 07/01/25 12:04 This note was created with the assistance of voice recognition software whereby errors in grammar, syntax, and/or spelling may have occurred despite active proofreading efforts by the author. Please do not hesitate to contact the provider for clarification or for questions regarding the content of this document. MONALISA THOMSON NP Jul 01, 2025 10:25
[2025-07-01] MEDS ORDERED: AMOX-117 PO (10:32)
[2025-07-01] MEDS ORDERED: IBUP-1984 PO (10:32)
[2025-07-01] MEDS: amox tr/potassium clavulanate 875/125mg TAB PO ONE (10:42)
[2025-07-01] MEDS: HYDROcodone/acetaminophen 10/325mg tab PO ONE (10:43)
[2025-07-01 10:54] VITALS: BP 132/80; PULSE 77; RESP 16; TEMP 98.1; O2SAT 99
[2025-07-04] MEDS ORDERED: AMOX-CLAV (14:00)
[2025-07-04] MEDS ORDERED: BUPR1FIL3 SL (14:17)
[2025-07-04] MEDS ORDERED: NALO4SPR BOTHNARES (14:17)
== END 2025-07-01 10:55 | disposition home or self-care (01) ==
LOC: ER 08:53
DX: K04.7 Periapical abscess without sinus (principal); F17.290 Nicotine dependence, other tobacco product, uncomplicated; F14.90 Cocaine use, unspecified, uncomplicated; F10.90 Alcohol use, unspecified, uncomplicated; Y90.9 Presence of alcohol in blood, level not specified; Z87.442 Personal history of urinary calculi; Z79.899 Other long term (current) drug therapy
CPT/HCPCS: 99283

== ENCOUNTER 2025-07-17 11:47 | Emergency (ER) | payer MEDICAID ==
[~2025-07-17] VITALS: Ht 182.9 cm; Wt 66.9 kg
[~2025-07-17 11:47] MED LIST changes: +AMOX-CLAV; +BUPR1FIL3 SL; -CLOT30CR19 TOP
[2025-07-17 11:58] VITALS: BP 111/73; PULSE 89; O2SAT 99
--- NOTE | 2025-07-17 13:55 | Physician Documentation ---
History of Present Illness ~ Chief Complaint: Multiple Medical Complaints Stated Complaint: MULTIPLE COMPLAINTS Time Seen by MD: 13:22 Primary Medical Doctor: none HPI 30-year-old male known to this ED returns for a complaint of a headache and bottom right molar pain which he has been treated for previously. There was no area of point tenderness in patient denies having any fevers. In addition patient is a Suboxone patient and reports occasional withdrawal symptoms Day of Onset: Jul 17, 2025 Medication Reconciliation Allergies: Coded Allergies: No Known Allergies (Unverified , 07/17/25) Scheduled Buprenorphine Hcl/Naloxone Hcl (Suboxone 8 Mg-2 Mg Sl Film), 1 STRIP SL TID Clindamycin HCl (Cleocin HCl), 1 CAP PO Q8H Naloxone HCl (Narcan), 1 SPRAYS BOTHNARES ONCE Naloxone HCl (Narcan), 1 SPRAYS BOTHNARES ONCE Scheduled PRN Buprenorphine HCl/Naloxone HCl (Buprenorphin-Naloxon 8-2 mg Tb), 1 TAB SL Q12H PRN PRN for f11.20 Home Med List (No Home Medications), for for anxiety/agitation, (Reported) Miscellaneous Medications [Amox-Clav], (Reported) Past Medical History Past Medical History: Kidney Stones Past Surgical History: tonsillectomy, other Alcohol Use: Heavy Drug Use: cocaine Lives with: Father Lives In: Home Occupation: employed Review of Systems All Other Systems at this time: Reviewed and Negative ROS As stated above in the HPI, otherwise all systems are reviewed and negative. Physical Exam Vital Signs: Temperature: 97.7, Source: Temporal, Heart Rate: 89, Respiratory Rate: 16, BP: 111/73, Pulse Oximetry: 99, Weight: 66.900 Oxygen Flow Rate: 0 Physical Exam General: Alert, no apparent distress. HEENT: PERRL, EOMI, no injection, moist mucous membranes. Notable tooth caries and swelling in the surrounding tissue of the back bottom right molars Neck: Full range of motion. Respiratory: Lungs clear, no respiratory distress. Neurologic: Oriented x4. Psychiatric: Normal mood and affect. Skin: Normal color, warm and dry. No edema, no ecchymosis. Progress Results/Orders Results/Orders Completed Orders - ROMULO WATSON NP Ketorolac Trometh 30mg/Ml Vial (Toradol (07/17/25 13:55) Clindamycin Capsule (Cleocin Capsule) (07/17/25 13:55) Medications Received in ER Medications (Trade) Dose Ordered Sig/Shyanne Route PRN Reason Start Time Stop Time Status Last Admin Dose Admin (Toradol inj. 30mg/ml) 30 mg ONCE ONCE IM 07/17/25 13:55 07/17/25 13:56 DC 07/17/25 14:14 30 MG (Cleocin capsule) 300 mg ONCE ONCE PO 07/17/25 13:55 07/17/25 13:56 DC 07/17/25 14:13 300 MG Vital Signs 07/17/25 07/17/25 07/17/25 11:58 14:14 14:14 Temp 97.7 97.7 Pulse 89 Resp 16 16 B/P (MAP) 111/73 Pulse Ox 99 O2 Flow Rate 0 Medical Decision Making Additional information obtaine: old records Findings Patient empirically for a tooth infection via oral antibiotic Ear Diff. Dx: Considerations: Unlikely: Abrasion, Cerumen impaction, Foreign body, Otitis externa, Barotrauma, Otitis media, Perforation, Referred pain- dental, Referred pain-pharyngitis, Referred pain-sinusitis, Referred pain-TMJ syn., Tympanic Membrane Injury, Other Eye Diff. Dx: Considerations: Unlikely: Chalazoin, Conjuctivits-allergic, Conjuctivitis-bacterial, Conjuctivits-chlamydial, Conjuctivitis-viral, Corneal abrasion, Corneal laceration, Corneal ulceration, Foreign body-conjuctiva, Foreign body-corneal, Foreign body-intraocular, Foreign body-lid, Glaucoma, Globe rupture, Hordeolum, Iritis, Orbital cellulitis, Periobital cellulitis, Retinal artery occulsion, Retinal vein occlusion, Rust ring, Subconjunctival hem, Ultraviolet keratitis, Uveitis, Vitreous hemorrhage, Other Nose Diff. Dx: Considerations: Unlikely: Abrasion, Anterior nasal bleed, Avulsion, Contusion, Coagulopathy, Fracture-nasal bone, Fracture-septum, Hypertension, Laceration, Other, Posterior nasal bleed, Retained foreign body, Septal hematoma Tooth Diff. Dx: Considerations: Include: Alveolar fracture, Aveolar osteitis, ANUG, Facial cellulitis, Periapical abscess, Periodontal abscess, Post- extraction bleeding, Pulpitis, Trigeminal neuralgia, Tooth-avulsion, Tooth- eruption, Tooth-fracture, Tooth-subluxation, Other Throat Diff Dx: Considerations: Unlikely: AIDS, Epiglottitis, Esophageal candidiasis, Hand foot mouth disease, Herpangina, Herpetic stomatitis, Herpes simplex, Infection mononucleosis, Immunodeficiency, Zack's angina, Peritonsillar abscess, Peritonsillar cellulitis, Pharyngitis-diphtheria, Pharyngitis-strepococcal, Pharyngitis-viral, Thrush, URI, Other Departure Disposition: HOME / SELF CARE / HOMELESS Impression: Primary Impression: Opiate dependence Additional Impressions: Polysubstance abuse Tooth pain Condition: Stable Discharge Instructions: Abscessed Tooth, [id number] Additional Instructions: go to your dentist [facility] Referrals: NO PRIMARY CARE PROVIDER (PCP) Prescriptions Clindamycin HCl (Cleocin HCl) 150 Mg Capsule 1 CAP PO Q8H for 10 Days, #30 CAP Prov: ROMULO WATSON NP 07/17/25 Education Educated: Patient Educated regarding: diagnosis Signature Scribe Signature: u Attestation: Scribed for Romulo Watson Np by Romulo Perry NP . 07/17/25 13:58 ROMULO WATSON NP Jul 17, 2025 13:55
[2025-07-17] MEDS ORDERED: CLIN150C2 PO (13:57)
[2025-07-17 14:14] VITALS: RESP 16; TEMP 97.7
[2025-07-17] MEDS: ketorolac trometh 30MG/ML vial 30 MG/ML VIAL IM ONE (14:14)
== END 2025-07-17 14:16 | disposition home or self-care (01) ==
LOC: ER 11:48
DX: F11.20 Opioid dependence, uncomplicated (principal); F19.10 Other psychoactive substance abuse, uncomplicated; K08.89 Other specified disorders of teeth and supporting structures; F14.90 Cocaine use, unspecified, uncomplicated; Z90.89 Acquired absence of other organs; Z79.899 Other long term (current) drug therapy; Z87.442 Personal history of urinary calculi; Z98.890 Other specified postprocedural states
CPT/HCPCS: 96372; 99283; J1885

== ENCOUNTER 2025-07-24 12:30 | Emergency (ER) | payer MEDICAID ==
[~2025-07-24] VITALS: Ht 182.9 cm; Wt 68.2 kg
[~2025-07-24 12:30] MED LIST changes: -BUPR1FIL3 SL; +CLIN150C2 PO
[2025-07-24 12:39] VITALS: TEMP 98
[2025-07-24 13:02] LABS: MEAN PLATELET VOLUME 8.0 FL (7.4-10.4); RED CELL DISTRIBUTION WIDTH 12.8 % (11.5-14.5)
--- NOTE | 2025-07-24 13:02 | RADIOLOGY REPORT ---
EXAM: DI CHEST,SINGLE VIEW HISTORY: CP COMPARISON: DI CHEST,SINGLE VIEW on DOS: 07/10/25, DI CHEST,SINGLE VIEW on DOS: 06/26/24, DI CHEST,SINGLE VIEW on DOS: 04/25/24, DI CHEST,SINGLE VIEW on DOS: 12/18/23, DI CHEST,SINGLE VIEW on DOS: 08/15/23 TECHNIQUE: PA upright view of the chest was performed. FINDINGS: No pneumothorax, consolidative infiltrates, or pulmonary edema. The heart is not enlarged. IMPRESSION: No acute intrathoracic process.
--- NOTE | 2025-07-24 13:04 | ELECTROCARDIOGRAPH REPORT ---
[facility] Test Date: 2025-07-24 Test Time: 13:03:44 Pat Name: FRANCIS REID Department: [facility] Patient ID: [facility]-[id number] Room: Gender: M Fur Dyer: : 1995 Requested By: CORKY HO Order Number: [id number] Reading MD: Dr. TYLER Richardson Measurements Intervals [place] Rate: 83 P: 67 ND: 114 QRS: 65 QRSD: 96 T: 46 QT: 354 QTc: 416 Interpretive Statements Sinus rhythm Borderline short ND interval RSR' in V1 or V2, probably normal variant ST elev, probable normal early repol pattern Electronically Signed On 07-25-2025 18:41:[address] TYLER Richardson Please click the below link to view image of tracing.
[2025-07-24 13:38] LABS: CREATININE 0.88 MG/DL (0.60-1.10); PRO BRAIN NATRIURETIC PEPTIDE < 30 PG/ML (0-125); TOTAL CARBON DIOXIDE 29.6 MMOL/L (24-32); eCRCL 119 ML/MIN; eGFR > 90 ML/MIN
--- NOTE | 2025-07-24 14:07 | Physician Documentation ---
History of Present Illness ~ Chief Complaint: Chest Pain Stated Complaint: CHEST PAIN Time Seen by MD: 14:40 Primary Medical Doctor: none HPI This is a 30-year-old male who presents with left-sided chest pain and shortness of breath worse with sleeping for the past several weeks, the patient reports similar symptoms for the past five years. Patient is reports the pain as sharp and primary located to the left lower lateral chest through his axilla into his shoulder. Patient was seen one-week prior for the same and was told to return for worsening symptoms. Patient reports symptoms typically upon waking though resolves once he starts moving around. Medication Reconciliation Allergies: Coded Allergies: No Known Allergies (Unverified , 07/17/25) Scheduled Clindamycin HCl (Cleocin HCl), 1 CAP PO Q8H Naloxone HCl (Narcan), 1 SPRAYS BOTHNARES ONCE Naloxone HCl (Narcan), 1 SPRAYS BOTHNARES ONCE Scheduled PRN Buprenorphine HCl/Naloxone HCl (Buprenorphin-Naloxon 8-2 mg Tb), 1 TAB SL Q12H PRN PRN for f11.20 Home Med List (No Home Medications), for for anxiety/agitation, (Reported) Miscellaneous Medications [Amox-Clav], (Reported) Discontinued Medications Buprenorphine Hcl/Naloxone Hcl (Suboxone 8 Mg-2 Mg Sl Film), 1 STRIP SL TID Discontinued Reason: Auto Discontinued Past Medical History Past Medical History: Kidney Stones Past Surgical History: tonsillectomy, other Alcohol Use: Heavy Drug Use: cocaine Lives with: Father Lives In: Home Occupation: employed Review of Systems ROS As stated above in the HPI, otherwise all systems are reviewed and negative. Physical Exam Vital Signs: Temperature: 98.0, Heart Rate: 84, Respiratory Rate: 15, BP: 121/78, Pulse Oximetry: 98, Weight: 68.180 Oxygen Flow Rate: 0 Physical Exam VITALS: Reviewed and as above. GENERAL: Alert, nontoxic appearing, no apparent distress. RESPIRATORY: No increased work of breathing, no respiratory distress, speaking in full clear sentences, clear lung sounds in all romo CHEST: Nontender to palpation CV: Regular rate and rhythm no murmur BACK: Nontender to palpation, no central spinal tenderness GI: Nontender to palpation Progress Results/Orders Results/Orders Orders - CORKY HO ACID DUMPER Chest,Single View (07/24/25 12:42) Monitor (07/24/25 12:42) Saline Lock (07/24/25 12:42) Oxygen (07/24/25 12:42) Completed Orders - CORKY HO W ACID DUMPER Chest,Single View (07/24/25 12:42) Cbc/Diff (07/24/25 12:42) BMP (07/24/25 12:42) PBNP (07/24/25 12:42) Electrocardiogram (07/24/25 12:42) Hs Troponin I W Calculations (07/24/25 12:42) Hs Troponin I W Calculations (07/24/25 14:42) Vital Signs 07/24/25 07/24/25 07/24/25 12:39 14:28 15:40 Temp 98.0 Pulse 84 81 Resp 15 14 15 B/P (MAP) 121/78 117/60 (79) Pulse Ox 98 99 O2 Flow Rate 0 Laboratory Tests Test 07/24/25 12:54 07/24/25 14:51 White Blood Count 5.4 Red Blood Count 4.52 L Hemoglobin 13.7 L Hematocrit 40.5 L Mean Corpuscular Volume 89.6 Mean Corpuscular Hemoglobin 30.3 Mean Corpuscular Hemoglobin Concent 33.9 Red Cell Distribution Width 12.8 Platelet Count 254 Mean Platelet Volume 8.0 Neutrophils (%) (Auto) 49.4 Lymphocytes (%) (Auto) 37.4 Monocytes (%) (Auto) 9.6 Eosinophils (%) (Auto) 3.0 Basophils (%) (Auto) 0.6 Neutrophils # (Auto) 2.7 Lymphocytes # (Auto) 2.0 Monocytes # (Auto) 0.5 Eosinophils # (Auto) 0.2 Basophils # (Auto) 0.0 CBC Comment Sodium Level 141 Potassium Level 4.7 Chloride Level 105 Carbon Dioxide Level 29.6 Anion Gap 6 L Blood Urea Nitrogen 18 Creatinine 0.88 Estimated GFR/1.73 m2 > 90 BUN/Creatinine Ratio 20.5 H Glucose Level 101 Calcium Level 9.0 Troponin I High Sensitivity 4 4 Pro-B-Type Natriuretic Peptide < 30 Albumin 4.2 Chemistry Comments Troponin I High Sens Percent Delta 0 Troponin I Hi Sens Absolute Change 0 EKG/XRAY/CT/US/VASC/MRI EKG : Additional Comment EKG at 1:03 p.m.: Interpreted by myself and ED MD as sinus rhythm at a rate of 83, normal axis, early repolarization pattern in ST segment Heart Score: Heart Score Response (Comments) Value History Slightly Suspicious 0 EKG Normal 0 Age <45 0 Risk Factors 1 or 2 risk factors 1 Troponin Normal limit 0 Total 1 Medical Decision Making Additional information obtaine: old records Findings MSE performed in triage and patient returned to ED lobby by nursing staff to await available ED room. Patient was hemodynamically stable and initial EKG did not demonstrate STEMI, patient appropriate for ED lobby wait. This well-appearing 30-year-old male presented to the emergency department due to concern for left-sided chest pain described as sharp and shortness of breath that is worse when sleeping though resolves on activity, symptoms have been present intermittently for the past five years though worse in the last two week s. Patient reports he has not follow up his primary care provider. Physical exam was reassuring along with no elevation of troponin, and no evidence of infarction or ischemia on EKG. It is reassuring patient's symptoms improve with activity and that symptoms are currently not present. Patient's physical exam was benign and patient is well-appearing and appropriate for outpatient follow up. Heart score of 1. PERC and well's negative. Patient is hemodynamically stable. Patient provided careful return to care precautions, follow up instructions, and home care instructions which he verbalized understanding of. Heart Score: 1 Differential Dx:Considerations: Include: angina, aortic dissection, chest wall pain, cholelithiasis, CHF, costochondritis, esophageal reflux/spasm, gastritis, herpes zoster, myocardial infarction, pericarditis, pleuritis, pancreatitis, pneumonia, pneumothorax, pulmonary embolus Departure Disposition: HOME / SELF CARE / HOMELESS Impression: Primary Impression: Chest pain Qualified Codes: R07.9 - Chest pain, unspecified Additional Impression: Shortness of breath Condition: Improved Additional Instructions: Your lab work, imaging, and EKG were all reassuring. Please follow up with the primary care provider for further evaluation of your symptoms. Please follow up with your primary care provider in the next few days. Please return to the emergency department for any new or worsening concerning symptoms. Referrals: NO PRIMARY CARE PROVIDER (PCP) Education Educated: Patient Educated regarding: diagnosis, treatment, prognosis, need for follow up Signature Scribe Signature: No scribe Attestation: The note accurately reflects work and decisions made by me.BIRD Dutton 07/24/25 19:48 CORKY HO [facility] Jul 24, 2025 14:07
[2025-07-24 14:28] VITALS: BP 117/60; PULSE 81; O2SAT 99
[2025-07-24 15:40] VITALS: RESP 15
== END 2025-07-24 15:47 | disposition home or self-care (01) ==
LOC: ER 12:31
DX: R07.89 Other chest pain (principal); R06.02 Shortness of breath; F10.90 Alcohol use, unspecified, uncomplicated; Z87.442 Personal history of urinary calculi; Z90.89 Acquired absence of other organs; Y90.9 Presence of alcohol in blood, level not specified
CPT/HCPCS: 36415; 71045; 80048; 83880; 84484; 85025; 93005; 99285

== ENCOUNTER 2025-07-31 18:25 | Emergency (ER) | payer MEDICAID ==
[~2025-07-31] VITALS: Ht 182.9 cm; Wt 67.6 kg
[~2025-07-31 18:25] MED LIST changes: -CLIN150C2 PO
[2025-07-31] MEDS ORDERED: BUPR1FIL3 SL ×2 (19:37→19:51)
[2025-07-31] MEDS: buprenorphine/naloxone 8MG-2MG SUBlingual film SL STA (19:50)
--- NOTE | 2025-07-31 19:52 | Physician Documentation ---
HPI ~ General Chief Complaint: Medication Request Stated Complaint: MED REQUEST Time Seen by MD: 19:35 Primary Medical Doctor: none History of Present Illness HPI Comments 30-year-old male who presents to the emergency department requesting Suboxone prescription. Recently successfully discharged for rehab. Has a difficulty landing himself up with the primary care physician for continuing maintenance therapy of Suboxone 8/2 TID. Reports last dose was greater than 18 hours ago and feels early withdrawal. Medication Reconciliation Allergies: Coded Allergies: No Known Allergies (Unverified , 07/17/25) Scheduled Buprenorphine Hcl/Naloxone Hcl (Suboxone 8 Mg-2 Mg Sl Film), 1 STRIP SL TID Naloxone HCl (Narcan), 1 SPRAYS BOTHNARES ONCE Naloxone HCl (Narcan), 1 SPRAYS BOTHNARES ONCE Scheduled PRN Buprenorphine HCl/Naloxone HCl (Buprenorphin-Naloxon 8-2 mg Tb), 1 TAB SL Q12H PRN PRN for f11.20 Home Med List (No Home Medications), for for anxiety/agitation, (Reported) Miscellaneous Medications [Amox-Clav], (Reported) Discontinued Medications Clindamycin HCl (Cleocin HCl), 1 CAP PO Q8H Discontinued Reason: Auto Discontinued Past Medical History Past Medical History: Kidney Stones Past Surgical History: tonsillectomy, other Alcohol Use: Heavy Drug Use: cocaine Lives with: Father Lives In: Home Occupation: employed Review of Systems All Other Systems at this time: Reviewed and Negative (See HPI) Physical Exam Physical Exam Vital Signs: RN Vital Signs have been reviewed: Yes, Temperature: 98.7, Source: Temporal, Heart Rate: 70, Respiratory Rate: 16, BP: 114/81, Pulse Oximetry: 100, Weight: 67.600 Oxygen Flow Rate: 0 General Appearance: alert, WD/WN, mild distress Pupils/EOM/Fundus: PERRLA Neck: non-tender Chest: no accessory muscle use Gastrointestinal: other (Mild GI upset) Extremities: normal inspection Neurologic: oriented x4 Motor / Sensory: no motor deficit, no sensory deficit Thought/Hallucinations: normal thought pattern (Mildly anxious) Affect: anxious Skin: warm/dry Progress Results/Orders Results/Orders Completed Orders - ROMMEL ALEMAN PAC Buprenorphine/Naloxone Sl Film (Suboxone (07/31/25 19:42) Vital Signs 07/31/25 07/31/25 18:47 20:04 Temp 98.7 98.6 Pulse 70 69 Resp 16 18 B/P (MAP) 114/81 115/80 Pulse Ox 100 99 O2 Flow Rate 0 Medical Decision Making Additional information obtaine: old records Findings [age] year old male requiring Suboxone bridge therapy. In mild withdrawal at this time. First dose provided in the emergency department. Patient's safely discharged with one week Suboxone therapy. Patient reassures me that his dosage is eight/to TID since being discharged from facility. He does have scheduled follow up. Differential Dx:Considerations: Include: Adverse circumstances, Economic, Psychosocial, Medical services unavail., Medication refill, Medication non- compliance, Other Departure Disposition: HOME / SELF CARE / HOMELESS Impression: Primary Impression: Opiate dependence Qualified Codes: F11.23 - Opioid dependence with withdrawal Discharge Instructions: Medicine Refill at the Emergency Department Additional Instructions: Please obtain a Suboxone prescription and begin as directed. Make follow up appointment primary care physician for continued maintenance therapy. Thank you for visiting emergency department [facility]. Referrals: NO PRIMARY CARE PROVIDER (PCP) Prescriptions Buprenorphine Hcl/Naloxone Hcl (Suboxone 8 Mg-2 Mg Sl Film) 8 Mg-2 Mg Film 1 STRIP SL TID for 7 Days, #21 STRIP Prov: ROMMEL ALEMAN PAC 07/31/25 Education Educated: Patient Educated regarding: diagnosis, treatment, prognosis, need for follow up Signature Scribe Signature: . Attestation: . ROMMEL ALEMAN PAC Jul 31, 2025 19:52
[2025-07-31 20:04] VITALS: BP 115/80; PULSE 69; RESP 18; TEMP 98.6; O2SAT 99
== END 2025-07-31 20:04 | disposition home or self-care (01) ==
LOC: ER 18:26
DX: F11.23 Opioid dependence with withdrawal (principal); Z87.442 Personal history of urinary calculi; Z90.89 Acquired absence of other organs; Z79.899 Other long term (current) drug therapy; F14.90 Cocaine use, unspecified, uncomplicated
CPT/HCPCS: 99283